=== PATIENT | male | born 1980 | race Two or more races ===

== ENCOUNTER 2020-02-27 11:53 | Inpatient (IN) | payer MEDICAID, OTHER ==
[~2020-02-27] VITALS: Ht 160 cm; Wt 94.0 kg
[2020-02-27 12:51] LABS: Basophils # (auto) 0 10 ^3/uL (0-0.2); Basophils % (auto) 0.5 % (0.0-2.0); Eosinophils # (auto) 0.3 10 ^3/uL (0-0.8); Eosinophils % (auto) 3.6 % (0.0-7.0); Hematocrit 46.2 % (41.0-53.0); Hemoglobin 16.1 g/dL (13.5-17.5); Lymphocytes # (auto) 2.4 10 ^3/uL (0.4-5.4); Lymphocytes % (auto) 30.9 % (10.0-50.0); Mean Corpuscular Hemoglobin 29.5 pg (28.0-32.0); Mean Corpuscular Hgb Conc. 34.8 g/dL (32.0-36.0); Mean Corpuscular Volume 84.7 fL (80.0-100.0); Monocytes # (auto) 0.5 10 ^3/uL (0-1.3); Monocytes % (auto) 6.3 % (0.0-12.0); Neutrophils # (auto) 4.5 10 ^3/uL (1.6-8.6); Neutrophils % (auto) 58.7 % (37.0-80.0); Nucleated Red Blood Cells % 0.3 %; Platelet Count (auto) 265 10^3/uL (140-450); Red Blood Cells 5.46 10^6/uL (4.5-5.90); White Blood Cell 7.7 10^3/uL (4.4-10.8)
[2020-02-27 13:02] LABS: Albumin 3.9 g/dL (3.4-5.0); Potassium 4.1 mmol/L (3.5-5.1)
[2020-02-27 13:06] LABS: Bilirubin, Total 0.2 mg/dL (0.2-1.0); Total Protein 8.5 g/dL (6.4-8.2)
[2020-02-27 13:10] LABS: INR 0.97 (0.9-1.15); Partial Thromboplastin Time 28.6 sec (23.0-31.2)
[2020-02-27] MEDS ORDERED: cloNIDine HCL 0.1 MG TAB PO ONE (14:00)
[2020-02-27] MEDS ORDERED: hydrALAZINE HCL 20 MG/ML VL IV ONE (17:30)
[2020-02-27] MEDS ORDERED: ASPirin 81 mg TAB PO ONE (19:30)
[2020-02-27] MEDS ORDERED: MORPHINE SULF INJ 2 MG/ML SYRINGE 1ML IV PRN (19:30)
[2020-02-27] MEDS ORDERED: NITROGLYCERIN 0.4 MG SL TAB SL PRN (19:30)
[2020-02-27] MEDS ORDERED: ATORVASTATIN 20 MG TAB PO ONE (19:30)
[2020-02-27] MEDS ORDERED: ENOXAPARIN SOD 40 MG/0.4 ML SYRINGE SC ONE (21:00)
[2020-02-27] MEDS ORDERED: NIFEdipine 10 MG CAP PO ONE (21:00)
[2020-02-27] MEDS ORDERED: NIFEdipine ER 30 MG TAB PO ONE (22:45)
[2020-02-28] MEDS ORDERED: LORazepam 0.5 MG TAB PO PRN
[2020-02-28] MEDS ORDERED: INFLUENZA QUAD 2020-2021 0.5 ML SYRG IM ONE
[2020-02-28] MEDS ORDERED: HYDROcodone-ACET 5/325MG TAB PO PRN
[2020-02-28] MEDS ORDERED: ALUM & MAG HYDROX-SIMETH LIQ(MAALOX) 30 ML PO PRN
[2020-02-28] MEDS ORDERED: ONDANSETRON HCL 4 MG/2 ML VIAL IV PRN
[2020-02-28] MEDS ORDERED: NITROGLYCERIN 0.4 MG SL TAB SL PRN
[2020-02-28] MEDS ORDERED: MORPHINE SULF INJ 2 MG/ML SYRINGE 1ML IV PRN ×2
[2020-02-28] MEDS ORDERED: PNEUMOCOCCAL VACC POLYS 25 MCG/0.5 ML VIAL IM ONE
[2020-02-28] MEDS ORDERED: DOCUSATE SOD 100 MG CAP PO PRN
[2020-02-28] MEDS: SODIUM CHLOR 0.9% PF (SALINE LOCK) 10ML VIAL/SYR IV SCH ×3 (06:00→23:31)
[2020-02-28 08:54] LABS: Cholesterol 215 mg/dL (< 200); Triglycerides 419 mg/dL (< 150)
[2020-02-28 08:56] LABS: HDL Cholesterol 35 mg/dL (40-59)
[2020-02-28] MEDS ORDERED: LORazepam 2MG/ML-1ML VIAL IV PRN (11:00)
[2020-02-28] MEDS: CLOPIDOGREL BISULFATE 75 MG TAB PO SCH (11:17)
[2020-02-28] MEDS: NIFEdipine ER 30 MG TAB PO SCH (11:17)
[2020-02-28] MEDS: ENOXAPARIN SOD 40 MG/0.4 ML SYRINGE SC SCH (11:18)
[2020-02-28 21:28] VITALS: BP 159/122
[2020-02-28 22:00] VITALS: BP 159/122
[2020-02-28] MEDS: ATORVASTATIN 20 MG TAB PO SCH (23:31)
[2020-02-28] MEDS: hydrALAZINE HCL 20 MG/ML VL IV PRN (23:32)
[2020-02-29] MEDS ORDERED: INFLUENZA QUAD 2020-2021 0.5 ML SYRG IM ONE (03:15)
[2020-02-29] MEDS ORDERED: PNEUMOCOCCAL VACC POLYS 25 MCG/0.5 ML VIAL IM ONE (03:15)
[2020-02-29 03:22] LABS: Urine Amorphous Crystal FEW /hpf (None Seen); Urine Bacteria FEW /hpf (None Seen); Urine Blood Negative /uL (Negative); Urine Hyaline Cast FEW /lpf (0 - 2); Urine Mucus FEW (None Seen); Urine Specific Gravity 1.023 (1.001-1.035); Urine WBC 1 /hpf (0 - 3)
[2020-02-29 03:37] LABS: Alcohol, Urine < 3.0 mg/dL (0-10); Amphetamine Screen, Urine NEGATIVE (NEGATIVE); Barbiturate Scree,Urine NEGATIVE (NEGATIVE); Benzodiazephine Screen, Urine NEGATIVE (NEGATIVE); Cannabinoid Screen, Urine NEGATIVE (NEGATIVE); Cocaine Screen, Urine NEGATIVE (NEGATIVE); Opiate Scree,Urine NEGATIVE (NEGATIVE); Phencyclidine Screen, Urine NEGATIVE (NEGATIVE)
[2020-02-29 05:00] VITALS: BP 126/81
[2020-02-29] MEDS: SODIUM CHLOR 0.9% PF (SALINE LOCK) 10ML VIAL/SYR IV SCH ×3 (06:16→22:00)
[2020-02-29 08:44] VITALS: BP 141/77
[2020-02-29] MEDS: ASPirin-EC 81 mg tab PO SCH (09:23)
[2020-02-29] MEDS: CLOPIDOGREL BISULFATE 75 MG TAB PO SCH (09:23)
[2020-02-29] MEDS: NIFEdipine ER 30 MG TAB PO SCH (09:23)
[2020-02-29] MEDS: ENOXAPARIN SOD 40 MG/0.4 ML SYRINGE SC SCH (09:24)
[2020-02-29] MEDS: hydrALAZINE HCL 20 MG/ML VL IV PRN (12:22)
[2020-02-29 12:35] VITALS: BP 154/83
[2020-02-29 17:23] VITALS: BP 127/82
[2020-02-29 21:22] VITALS: BP 121/75
[2020-02-29] MEDS: ATORVASTATIN 20 MG TAB PO SCH (21:28)
[2020-03-01 05:55] VITALS: BP 128/84
[2020-03-01] MEDS: SODIUM CHLOR 0.9% PF (SALINE LOCK) 10ML VIAL/SYR IV SCH (06:00)
[2020-03-01 08:56] VITALS: BP 129/87
[2020-03-01] MEDS: CLOPIDOGREL BISULFATE 75 MG TAB PO SCH (09:33)
[2020-03-01] MEDS: ENOXAPARIN SOD 40 MG/0.4 ML SYRINGE SC SCH (09:34)
[2020-03-01] MEDS: ASPirin-EC 81 mg tab PO SCH (09:34)
[2020-03-01] MEDS: NIFEdipine ER 30 MG TAB PO SCH (09:34)
[2020-03-01 12:18] VITALS: BP 130/65
[2020-03-01 13:08] VITALS: BP 138/77
== END 2020-03-01 14:33 | disposition home or self-care (01) | DRG 45 ==
LOC: ER 11:53 → OVERFLOW 11:54 → TELE-CENTR 02-28 21:28
PROVIDERS: ADMIT Hospitalist; ATTEND Internal Medicine
DX: I63.511 Cerebral infarction due to unspecified occlusion or stenosis of right middle cerebral artery (principal); G81.94 Hemiplegia, unspecified affecting left nondominant side; R47.81 Slurred speech; R47.1 Dysarthria and anarthria; G47.10 Hypersomnia, unspecified; Z20.828 Contact with and (suspected) exposure to other viral communicable diseases; I10 Essential (primary) hypertension; R51.9 Headache, unspecified; E78.5 Hyperlipidemia, unspecified; I16.1 Hypertensive emergency; Z79.02 Long term (current) use of antithrombotics/antiplatelets; Z79.82 Long term (current) use of aspirin; Z79.899 Other long term (current) drug therapy; Z82.49 Family history of ischemic heart disease and other diseases of the circulatory system; Z83.3 Family history of diabetes mellitus; Z91.14 Patient's other noncompliance with medication regimen; Z68.36 Body mass index [BMI] 36.0-36.9, adult; Z23 Encounter for immunization; E66.9 Obesity, unspecified
CPT/HCPCS: 36415; 70450; 70545; 70551; 80053; 80061; 80307; 81001; 81241; 83036; 83880; 85025; 85301; 85302; 85303; 85305; 85306; 85610; 85613; 85670; 85705; 85730; 85732; 86147; 87040; 87426; 93005; 93886; 96372; 96374; 97110; 97116; 97530; G0378

== ENCOUNTER 2020-12-04 04:49 | Emergency (ER) | payer MEDICAID, OTHER ==
[~2020-12-04] VITALS: Ht 167.6 cm; Wt 97.5 kg
[2020-12-04] MEDS ORDERED: LORazepam 2MG/ML-1ML VIAL ONE (05:10)
[2020-12-04] MEDS ORDERED: SODIUM CHLORIDE 0.9% 1,000 ML IV ONE ×2 (05:15→08:15)
[2020-12-04] MEDS ORDERED: LORazepam 2MG/ML-1ML VIAL IV ONE ×2 (05:15→08:15)
[2020-12-04 05:42] LABS: Albumin 4.5 g/dL (3.4-5.0); Anion Gap 12 (5-15); Blood Alcohol < 3.0 mg/dL (0-5); Blood Urea Nitrogen 16 mg/dL (7-18); Calcium 8.8 mg/dL (8.5-10.1); Carbon Dioxide 23 mmol/L (21-32); Chloride 103 mmol/L (98-107); Glucose 123 mg/dL (74-106); Magnesium 2.5 mg/dL (1.6-2.6); Sodium 138 mmol/L (136-145)
[2020-12-04] MEDS ORDERED: ONDANSETRON HCL 4 MG/2 ML VIAL IV ONE (05:45)
[2020-12-04 05:49] LABS: Alanine Aminotransferase 44 U/L (16-61); Alkaline Phosphatase 96 U/L (45-117); Aspartate Aminotransferase 89 U/L (15-37); BUN/Creatinine Ratio 11.9; Bilirubin, Total 0.4 mg/dL (0.2-1.0); GFR African American 76 mL/min; GFR Non-African American 63 mL/min; Total Protein 8.8 g/dL (6.4-8.2)
[2020-12-04 05:55] LABS: Basophils # (auto) 0.1 10 ^3/uL (0-0.2); Basophils % (auto) 0.4 % (0.0-2.0); Eosinophils # (auto) 0 10 ^3/uL (0-0.8); Eosinophils % (auto) 0.2 % (0.0-7.0); Hematocrit 45.4 % (41.0-53.0); Hemoglobin 15.1 g/dL (13.5-17.5); Lymphocytes # (auto) 1.3 10 ^3/uL (0.4-5.4); Lymphocytes % (auto) 7.6 % (10.0-50.0); Mean Corpuscular Hemoglobin 28.3 pg (28.0-32.0); Mean Corpuscular Hgb Conc. 33.2 g/dL (32.0-36.0); Mean Corpuscular Volume 85.1 fL (80.0-100.0); Monocytes % (auto) 5.7 % (0.0-12.0); Neutrophils # (auto) 14.4 10 ^3/uL (1.6-8.6); Neutrophils % (auto) 86.1 % (37.0-80.0); Red Blood Cells 5.33 10^6/uL (4.5-5.90); Red Cell Distribution Width 14.4 % (11.8-14.3); White Blood Cell 16.7 10^3/uL (4.4-10.8)
[2020-12-04 06:22] LABS: Potassium 4.1 mmol/L (3.5-5.1)
[2020-12-04 09:00] VITALS: BP 191/117
== END 2020-12-04 10:27 | disposition left against medical advice (07) ==
LOC: ER 04:49
DX: F15.10 Other stimulant abuse, uncomplicated (principal); F41.8 Other specified anxiety disorders; I10 Essential (primary) hypertension; I25.2 Old myocardial infarction; E78.5 Hyperlipidemia, unspecified; Z86.73 Personal history of transient ischemic attack (TIA), and cerebral infarction without residual deficits
CPT/HCPCS: 36415; 80053; 80320; 83735; 84484; 85025; 93005; 96361; 96374; 96375; 99284; J2060; J2405; J7030

== ENCOUNTER 2021-03-05 13:19 | Emergency (ER) | payer MEDICAID, OTHER ==
[~2021-03-05] VITALS: Ht 160 cm; Wt 72.6 kg
[2021-03-05] MEDS ORDERED: cloNIDine HCL 0.1 MG TAB PO ONE (13:45)
[2021-03-05] MEDS ORDERED: ACETAMINOPHEN 500 MG TAB PO ONE (22:00)
[2021-03-05] MEDS ORDERED: hydrALAZINE HCL 20 MG/ML VL IV ONE (23:45)
[2021-03-06 00:08] LABS: Albumin 4.3 g/dL (3.4-5.0); Potassium 4.1 mmol/L (3.5-5.1)
[2021-03-06 00:14] LABS: BUN/Creatinine Ratio 20.3; Bilirubin, Total 0.5 mg/dL (0.2-1.0); Total Protein 8.7 g/dL (6.4-8.2)
[2021-03-06 00:29] LABS: Basophils # (auto) 0 10 ^3/uL (0-0.2); Basophils % (auto) 0.3 % (0.0-2.0); Eosinophils # (auto) 0.1 10 ^3/uL (0-0.8); Eosinophils % (auto) 0.4 % (0.0-7.0); Hematocrit 46.1 % (41.0-53.0); Hemoglobin 15.4 g/dL (13.5-17.5); Lymphocytes # (auto) 1.9 10 ^3/uL (0.4-5.4); Lymphocytes % (auto) 14.5 % (10.0-50.0); Mean Corpuscular Hemoglobin 28.1 pg (28.0-32.0); Mean Corpuscular Hgb Conc. 33.3 g/dL (32.0-36.0); Mean Corpuscular Volume 84.2 fL (80.0-100.0); Monocytes # (auto) 0.7 10 ^3/uL (0-1.3); Monocytes % (auto) 5.6 % (0.0-12.0); Neutrophils # (auto) 10.3 10 ^3/uL (1.6-8.6); Neutrophils % (auto) 79.2 % (37.0-80.0); Nucleated Red Blood Cells % 0.2 %; Red Blood Cells 5.48 10^6/uL (4.5-5.90); Red Cell Distribution Width 14.7 % (11.8-14.3)
[2021-03-06 01:37] VITALS: BP 151/104
== END 2021-03-06 01:41 | disposition home or self-care (01) ==
LOC: ER 13:19
DX: R07.89 Other chest pain (principal); E78.5 Hyperlipidemia, unspecified; I10 Essential (primary) hypertension; R51.9 Headache, unspecified; Z86.73 Personal history of transient ischemic attack (TIA), and cerebral infarction without residual deficits
CPT/HCPCS: 36415; 70450; 71045; 80053; 84484; 85025; 93005

== ENCOUNTER 2021-08-22 10:51 | Emergency (ER) | payer MEDICAID, OTHER ==
[~2021-08-22] VITALS: Ht 160 cm; Wt 104.3 kg
[2021-08-22 11:59] VITALS: BP 146/94
[2021-08-22 14:16] LABS: Basophils # (auto) 0 10 ^3/uL (0-0.2); Basophils % (auto) 0.3 % (0.0-2.0); Eosinophils # (auto) 0.2 10 ^3/uL (0-0.8); Eosinophils % (auto) 1.7 % (0.0-7.0); Hematocrit 47.5 % (41.0-53.0); Hemoglobin 16.1 g/dL (13.5-17.5); Lymphocytes # (auto) 2.7 10 ^3/uL (0.4-5.4); Lymphocytes % (auto) 25.3 % (10.0-50.0); Mean Corpuscular Hemoglobin 27.9 pg (28.0-32.0); Mean Corpuscular Hgb Conc. 33.9 g/dL (32.0-36.0); Mean Corpuscular Volume 82.3 fL (80.0-100.0); Monocytes # (auto) 0.7 10 ^3/uL (0-1.3); Monocytes % (auto) 6.2 % (0.0-12.0); Neutrophils # (auto) 7.2 10 ^3/uL (1.6-8.6); Neutrophils % (auto) 66.5 % (37.0-80.0); Nucleated Red Blood Cells % 0.1 %; Red Blood Cells 5.77 10^6/uL (4.5-5.90); Red Cell Distribution Width 14.7 % (11.8-14.3); White Blood Cell 10.8 10^3/uL (4.4-10.8)
[2021-08-22 14:26] LABS: Albumin 3.9 g/dL (3.4-5.0); Calcium 9.4 mg/dL (8.5-10.1); Potassium 4.2 mmol/L (3.5-5.1)
[2021-08-22 14:28] LABS: BUN/Creatinine Ratio 12.5
[2021-08-22 14:31] LABS: Bilirubin, Total 0.3 mg/dL (0.2-1.0); Total Protein 8.3 g/dL (6.4-8.2)
[2021-08-22] MEDS ORDERED: ONDA-144 PO (14:41)
[2021-08-22] MEDS ORDERED: PANT40TA2 PO (14:44)
== END 2021-08-22 15:59 | disposition left against medical advice (07) ==
LOC: ER 10:51
DX: R10.84 Generalized abdominal pain (principal); E78.5 Hyperlipidemia, unspecified; I10 Essential (primary) hypertension; F15.10 Other stimulant abuse, uncomplicated; Z86.73 Personal history of transient ischemic attack (TIA), and cerebral infarction without residual deficits
CPT/HCPCS: 36415; 76705; 80053; 82150; 83690; 85025

== ENCOUNTER 2025-02-10 02:51 | Inpatient (IN) | payer BC, MEDICAID ==
[~2025-02-10] VITALS: Ht 162.6 cm; Wt 104.5 kg
[2025-02-10] VITALS (23 sets, daily range): BP systolic 107–153; BP diastolic 50–93; PULSE 71–99; RESP 16–33; TEMP 98.5; O2SAT 79–97
[~2025-02-10 02:51] MED LIST: ONDA-144 PO; PANT40TA2 PO
--- NOTE | 2025-02-10 03:35 | ED.PDOC ---
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 According to the patient, yesterday on 02/09/2025 he woke up in the morning and was seeing white dots in his left eye, symptoms continued to persist and worsen which is what prompted this visit to the ER. Denies having similar symptoms in the past. On review of systems patient is complaining of urinary frequency. Patient was noted to have blood pressure 205/142 with a heart rate of 98. Chief Complaint: High Blood Pressure Time Seen by MD: 03:10 Allergies: Coded Allergies: NO KNOWN ALLERGIES (Unverified , 02/27/20) Home Meds Active Scripts Pantoprazole Sodium Sesquihydr (Protonix) 40 Mg Tab, 40 MG PO DAILY, #30 TAB Prov:PETE BOYER MD 08/22/21 Ondansetron (Zofran) 4 Mg Tab, 1 TAB PO Q6HR, #20 TAB Prov:PETE BOYER MD 08/22/21 Information Source: Patient, Spouse Mode of Arrival: Wheelchair Timing: Hours Duration: Since onset Medication Refill: Lost Prescription (Lost medical insurance), For: Hyperte nsion Past Medical History PAST MEDICAL HISTORY: CVA, High Lipids, HTN, PA Past Medical History (Contd): hypertension, dyslipidemia, TIA, CVA, 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 Surgical History: Denies all surgeries Family History Family History: Reviewed,noncontributory to illness Social History Smoker: Cigarettes (1 pack per day for the past 2 years) Alcohol: Denies ETOH Use, Other (6-10 drinks of beer per week, last drink on Sunday when he had 10 drinks) Drugs: Methamphetamine Lives In: Home Constitutional: denies: chills, diaphoresis, fatigue, fever, malaise, sweats, weakness, others EENTM: denies: blurred vision, double vision, ear bleeding, ear discharge, ear drainage, ear pain, ear ringing, eye pain, eye redness, hearing loss, mouth pain, mouth swelling, nasal discharge, nose bleeding, nose congestion, nose pain, photophobia, tearing, throat pain, throat swelling, voice changes, others Respiratory: reports: shortness of breath (For the last 3 years); denies: cough, hemoptysis, orthopnea, SOB at rest, SOB with excertion, stridor, wheezing, others Cardiovascular: denies: chest pain, dizzy spells, diaphoresis, Dyspnea on exertion, edema, irregular heart beat, left arm pain, lightheadedness, palpitations, PND, syncope, others Gastrointestinal: denies: abdomen distended, abdominal pain, blood streaked bowels, constipated, diarrhea, dysphagia, difficulty swallowing, hematemesis, melena, nausea, poor appetite, poor fluid intake, rectal bleeding, rectal pain, vomiting, others Genitourinary: reports: frequency; denies: burning, dysuria, flank pain, hematuria, incontinence, penile discharge, penile sore, pain, testicle pain, testicle swelling, urgency, others Neurological: denies: dizziness, fainting, headache, left sided numbness, left sided weakness, numbness, paresthesia, pre-existing deficit, right sided numbness, right sided weakness, seizure, speech problems, tingling, tremors, weakness, others Musculoskeletal: denies: back pain, gout, joint pain, joint swelling, muscle pain, muscle stiffness, neck pain, others Integumetry: denies: bruises, change in color, change in hair/nails, dryness, laceration, lesions, lumps, rash, wounds, others Allergic/Immunocompromised: denies: Difficulty Healing, Frequent Infections, Hives, Itching, others Hematologic/Lymphatic: denies: anemia, blood clots, easy bleeding, easy bruising, swollen glands, others Endocrine: denies: excessive hunger, excessive sweating, excessive thirst, excessive urination, flushing, intolerance to cold, intolerance to heat, unexpl ained weight gain, unexplained weight loss, others Psychiatric: denies: anxiety, bipolar disorder, depression, hopeless, panic disorder, schizophrenia, sleepless, suicidal, others Physical Exam General Appearance: Mild Distress HEENT: Other (Right pupil sluggishly reactive, decreased vision. Left pupil b risk reactive) Neck: Non-Tender, Normal, Normal Inspection Respiratory: No Accessory Muscle Use, Normal Breath Sounds Cardiovascular: Regular Rate/Rhythm Breast Exam: Deferred Gastrointestinal: Non Tender, No Pulsatile Mass, Normal Bowel Sounds Genitalia: Deferred Pelvic: Deferred Rectal: Rectal Exam not done Extremities: No calf tenderness, Non-tender, No pedal edema Neurologic: Alert, No Motor Deficits, No Sensory Deficits Cerebellar Function: Normal Reflexes: NOT DONE Skin: Dry, Normal Color Peripheral Pulses: 2+ dorsalis pedis (R), 2+ dorsalis pedis (L) Lymphatic: NOT DONE Was a procedure done? Was a procedure done?: No Differential Dx Considerations may include: Hypertensive urgency Hypertensive emergency Retinal detachment TIA NSTEMI X-Ray, Labs, Meds, VS Vital Signs Date Time Temp Pulse Resp B/P (MAP) Pulse Ox O2 Delivery O2 Flow Rate FiO2 02/10/25 04:35 80 190/124 02/10/25 04:34 80 190/124 02/10/25 04:29 67 02/10/25 04:15 70 195/126 (149) 02/10/25 03:43 83 199/141 02/10/25 03:22 96 Room Air* 0 21 02/10/25 03:22 97.8 85 17 205/142 (163) 96 97.8 02/10/25 03:17 98.1 98 20 213/154 97 98.1 Lab Test 02/10/25 03:33 Range/Units White Blood Count 10.2 4.4-10.8 10^3/uL Red Blood Count 5.69 4.5-5.90 10^6/uL Hemoglobin 16.0 13.5-17.5 g/dL Hematocrit 47.5 41.0-53.0 % Mean Corpuscular Volume 83.4 80.0-100.0 fL Mean Corpuscular Hemoglobin 28.1 28.0-32.0 pg Mean Corpuscular Hemoglobin Concent 33.7 32.0-36.0 g/dL Red Cell Distribution Width 15.3 H 11.8-14.3 % Platelet Count 154 140-450 10^3/uL Mean Platelet Volume 9.0 6.9-10.8 fL Neutrophils (%) (Auto) 64.8 37.0-80.0 % Lymphocytes (%) (Auto) 26.5 10.0-50.0 % Monocytes (%) (Auto) 5.0 0.0-12.0 % Eosinophils (%) (Auto) 3.3 0.0-7.0 % Basophils (%) (Auto) 0.4 0.0-2.0 % Neutrophils # (Auto) 6.6 1.6-8.6 10 ^3/uL Lymphocytes # (Auto) 2.7 0.4-5.4 10 ^3/uL Monocytes # (Auto) 0.5 0-1.3 10 ^3/uL Eosinophils # (Auto) 0.3 0-0.8 10 ^3/uL Basophils # (Auto) 0 0-0.2 10 ^3/uL Nucleated Red Blood Cells 0.2 % Sodium Level 139 136-145 mmol/L Potassium Level 3.6 3.5-5.1 mmol/L Chloride Level 104 98-107 mmol/L Carbon Dioxide Level 24 20-31 mmol/L Anion Gap 11 5-15 Blood Urea Nitrogen 21 9-23 mg/dL Creatinine 1.22 0.700-1.30 mg/dL Glomerular Filtration Rate Calc 75 >90 mL/min BUN/Creatinine Ratio 17.2 10.0-20.0 Serum Glucose 104 74-106 mg/dL Calcium Level 9.4 8.7-10.4 mg/dL Troponin I High Sensitivity 508 *H </=54 ng/L Current Medications Medications (Trade) Dose Ordered Sig/Hilton Route Start Time Stop Time Status Last Admin Labetalol HCl (Labetalol HCl) 10 mg ONCE ONCE IV 02/10/25 03:30 02/10/25 03:31 DC 02/10/25 03:43 Labetalol HCl (Labetalol HCl) 10 mg ONCE ONCE IV 02/10/25 04:15 02/10/25 04:21 DC 02/10/25 04:34 Time of 1ST Reevaluation: 03:50 Reevaluation 1ST: Unchanged Time of 2ND Reevaluation: 04:12 Reevaluation 2ND: Worsened Time of 3RD Reevaluation: 04:34 Reevaluation 3RD: Unchanged Patient Education/Counseling: Diagnosis, Treatment, Prognosis, Need For Follow Up Family Education/Counseling: Diagnosis, Treatment, Prognosis, Need For Follow Up SEPSIS Sepsis Screen Date sepsis recognized/suspect: Feb 10, 2025 Time Sepsis recognized/suspect: 254 Recent Procedure: No On Antibiotic Therapy: No Respiratory Rate >20: No Heart Rate >90: Yes Temp<36 C (96.8 F) or >38.3 C: No SBP <90 or MAP <65 mmHG: No New Acute Mental Status Change: No Is the patient on CPAP, BIPAP,: No Physician Orders Troponin-I Hs (02/10/25 04:24) Troponin-I Hs (02/10/25 06:24) Urinalysis (02/10/25 03:24) Head Without Contrast (02/10/25 03:35) Chest Portable (02/10/25 03:44) Vital Signs Date Time Temp Pulse Resp B/P (MAP) Pulse Ox O2 Delivery O2 Flow Rate FiO2 02/10/25 04:35 80 190/124 02/10/25 04:34 80 190/124 02/10/25 04:29 67 02/10/25 04:15 70 195/126 (149) 02/10/25 03:43 83 199/141 02/10/25 03:22 96 Room Air* 0 21 02/10/25 03:22 97.8 85 17 205/142 (163) 96 97.8 02/10/25 03:17 98.1 98 20 213/154 97 98.1 Laboratory Tests Test 02/10/25 03:33 White Blood Count 10.2 10^3/uL (4.4-10.8) Medications Medications Dose Ordered Sig/Hilton Route Start Time Stop Time Status Last Admin Dose Admin Labetalol HCl 10 mg ONCE ONCE IV 02/10/25 03:30 02/10/25 03:31 DC 02/10/25 03:43 Labetalol HCl 10 mg ONCE ONCE IV 02/10/25 04:15 02/10/25 04:21 DC 02/10/25 04:34 Departure 1 Departure Time of Disposition: 04:45 Impression: Primary Impression: Hypertensive emergency Additional Impressions: NSTEMI (non-ST elevated myocardial infarction) Hypertensive urgency TIA (transient ischemic attack) Disposition: 09 ADMITTED INPATIENT Admit to: Tele Condition: Guarded Comments Despite 2 doses of IV labetalol 10 mg, patient's blood pressure decreased only somewhat. Patient was also noted to have elevated troponins, however, EKG did not show contiguous changes. Patient was put up for admission for further evaluation and management. Critical Care Note Critical Care Time?: No Stability Stability form required: No Heart Score Heart Score: Heart Score Response (Comments) Value History Slightly Suspicious 0 EKG Normal 0 Age <45 0 Risk Factors >3 or Hx ASHD 2 Troponin >3 x's Normal limit 2 Total 4 JACOB ADDISON RESIDENT Feb 10, 2025 03:34
[2025-02-10] MEDS: LABETALOL HCL 20 MG/4 ML VL IV ONE ×2 (03:43→04:34)
[2025-02-10 03:45] LABS: Hematocrit 47.5 % (41.0-53.0); Hemoglobin 16.0 g/dL (13.5-17.5); Mean Corpuscular Hemoglobin 28.1 pg (28.0-32.0); Mean Corpuscular Volume 83.4 fL (80.0-100.0); Nucleated Red Blood Cells % 0.2 %
[2025-02-10 04:07] LABS: Chloride 104 mmol/L (98-107); Potassium 3.6 mmol/L (3.5-5.1); Sodium 139 mmol/L (136-145)
[2025-02-10 04:08] LABS: Anion Gap 11 (5-15); Calcium 9.4 mg/dL (8.7-10.4); Carbon Dioxide 24 mmol/L (20-31)
[2025-02-10 04:13] LABS: BUN/Creatinine Ratio 17.2 (10.0-20.0); Blood Urea Nitrogen 21 mg/dL (9-23); Glucose 104 mg/dL (74-106)
--- NOTE | 2025-02-10 04:31 | ECG ---
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
[2025-02-10] MEDS ORDERED: NITROGLYCERIN 0.4 MG SL TAB SL PRN (05:30)
[2025-02-10] MEDS ORDERED: MORPHINE SULFATE INJ 2 MG/ml SYRG IV PRN (05:30)
--- NOTE | 2025-02-10 05:33 | DVHHPRES ---
History of Present Illness Resident Creating Document: ORAL HAY History of Present Illness Mr Kenji Dupont, a 44 year-old male with past medical history of hypertension, hypercholesterolemia, TIA 3 years ago, right eye blindness since childhood presented to the ER with the complaints of visual symptoms in both eyes, he woke up to a bright leyla morning on Sunday but reports seeing white dots in both visual bryant. He denies any weakness, dizziness, ataxia or any other neurologic symptoms. On admission the patient's blood pressure was 205/142, heart rate was 98, troponin is in 500s. EKG showed noncontiguous leads ST- elevation, did not meet the criteria for ST-elevation for a male. We will continue monitoring EKG and troponin. Patient takes multiple home medications however he could not mention any name. He also reports having shortness of breaths since last 2 years, improves on sitting up and worsens on lying down. On examination no JVD, no hepatojugular reflux was noted. He has trace bilateral pedal edema. He also have episodes of paroxysmal nocturnal dyspnea. Echocardiography has been ordered. The patient reports he has been noncompliant with medications, due to insurance issues. Past medical history: As above Past surgical history: Allergies: None Home medications: Patient could not recall name, he takes antihypertensive and lipid-lowering agents, will bring those medications. In the system pantoprazole, ondansetron available. Smoking: Never Alcohol: On the weekends, 10 glasses. Drugs: None Code status: Full code Review of Systems Allergies: Coded Allergies: NO KNOWN ALLERGIES (Unverified , 02/27/20) Exam Vital Signs Vital Signs Date Time Temp Pulse Resp B/P (MAP) Pulse Ox O2 Delivery O2 Flow Rate FiO2 02/10/25 05:31 67 173/117 02/10/25 05:00 13 97 02/10/25 03:22 Room Air* 0 21 02/10/25 03:22 97.8 97.8 Exam Pt is lying on bed General Appearance: Alert, Oriented X3, Cooperative, Mild distress HEENT: Atraumatic, Mucous membranes moist/pink Respiratory: Clear to auscultation, Normal air movement, No added sounds Cardiovascular: Regular rate, Normal S1, Normal S2, No murmurs Abdominal/ : Active bowel sounds, Soft, no distention, no tenderness Extremities: Bilateral trace edema, Normal pulses, No tenderness/swelling Skin: No Significant rash, except past surgical scars Neuro: Normal speech, sensorimotor deficits none Psych/Mental Status: Mental status NL, Mood NL Nurse 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 examination Labs/Xrays Labs Test 02/10/25 04:53 02/10/25 03:33 Range/Units White Blood Count 10.2 4.4-10.8 10^3/uL Red Blood Count 5.69 4.5-5.90 10^6/uL Hemoglobin 16.0 13.5-17.5 g/dL Hematocrit 47.5 41.0-53.0 % Mean Corpuscular Volume 83.4 80.0-100.0 fL Mean Corpuscular Hemoglobin 28.1 28.0-32.0 pg Mean Corpuscular Hemoglobin Concent 33.7 32.0-36.0 g/dL Red Cell Distribution Width 15.3 H 11.8-14.3 % Platelet Count 154 140-450 10^3/uL Mean Platelet Volume 9.0 6.9-10.8 fL Neutrophils (%) (Auto) 64.8 37.0-80.0 % Lymphocytes (%) (Auto) 26.5 10.0-50.0 % Monocytes (%) (Auto) 5.0 0.0-12.0 % Eosinophils (%) (Auto) 3.3 0.0-7.0 % Basophils (%) (Auto) 0.4 0.0-2.0 % Neutrophils # (Auto) 6.6 1.6-8.6 10 ^3/uL Lymphocytes # (Auto) 2.7 0.4-5.4 10 ^3/uL Monocytes # (Auto) 0.5 0-1.3 10 ^3/uL Eosinophils # (Auto) 0.3 0-0.8 10 ^3/uL Basophils # (Auto) 0 0-0.2 10 ^3/uL Nucleated Red Blood Cells 0.2 % Sodium Level 139 136-145 mmol/L Potassium Level 3.6 3.5-5.1 mmol/L Chloride Level 104 98-107 mmol/L Carbon Dioxide Level 24 20-31 mmol/L Anion Gap 11 5-15 Blood Urea Nitrogen 21 9-23 mg/dL Creatinine 1.22 0.700-1.30 mg/dL Glomerular Filtration Rate Calc 75 >90 mL/min BUN/Creatinine Ratio 17.2 10.0-20.0 Serum Glucose 104 74-106 mg/dL Calcium Level 9.4 8.7-10.4 mg/dL SEPSIS Sepsis Screen Date sepsis recognized/suspect: Feb 10, 2025 Time Sepsis recognized/suspect: 254 Recent Procedure: No On Antibiotic Therapy: No Respiratory Rate >20: No Heart Rate >90: Yes Temp<36 C (96.8 F) or >38.3 C: No SBP <90 or MAP <65 mmHG: No New Acute Mental Status Change: No Is the patient on CPAP, BIPAP,: No Physician Orders Troponin-I Hs (02/10/25 04:24) Troponin-I Hs (02/10/25 06:24) Urinalysis (02/10/25 03:24) Head Without Contrast (02/10/25 03:35) Chest Portable (02/10/25 03:44) Admit (02/10/25 05:29) Allergies (02/10/25 05:29) Code Status (02/10/25 05:29) Enoxaparin Sodium (Lovenox) (02/10/25 10:00) Complete Blood Count (02/11/25 04:00) Comprehensive Metabolic Panel (02/11/25 04:00) Npo (Nothing By Mouth) Diet (02/10/25 Breakfast) Echo 2d Mode Cardiac Dop (02/10/25 05:29) Nitroglycerin Sublingual (Ntrostat Subli (02/10/25 05:30) Morphine Sulfate Injection (02/10/25 05:30) Oxygen By Nasal Cannula (02/10/25 05:29) Stat Ekg For Chest Pain (02/10/25 05:29) Notify Md Of Changes From Base (02/10/25 05:29) Snow Blower For 24 Hours (02/10/25 05:29) Emergency Dysrhythmia Protocol (02/10/25 05:29) Rhythm Strips Once Every Shift (02/10/25 05:29) Vital Signs Date Time Temp Pulse Resp B/P (MAP) Pulse Ox O2 Delivery O2 Flow Rate FiO2 02/10/25 05:31 67 173/117 02/10/25 05:00 73 13 180/125 (143) 97 02/10/25 04:35 80 190/124 02/10/25 04:34 80 190/124 02/10/25 04:29 67 02/10/25 04:15 70 195/126 (149) 02/10/25 03:43 83 199/141 02/10/25 03:22 96 Room Air* 0 21 02/10/25 03:22 97.8 85 17 205/142 (163) 96 97.8 02/10/25 03:17 98.1 98 20 213/154 97 98.1 Laboratory Tests Test 02/10/25 03:33 White Blood Count 10.2 10^3/uL (4.4-10.8) Medications Medications Dose Ordered Sig/Hilton Route Start Time Stop Time Status Last Admin Dose Admin Labetalol HCl 10 mg ONCE ONCE IV 02/10/25 03:30 02/10/25 03:31 DC 02/10/25 03:43 10 MG Labetalol HCl 10 mg ONCE ONCE IV 02/10/25 04:15 02/10/25 04:21 DC 02/10/25 04:34 10 MG Assessment/Plan Assessment/Plan Hypertensive emergency NSTEMI type 1 versus type 2 EKG: No acute ischemic changes, continue monitoring EKG Troponin in 500s Atorvastatin Losartan Nifedipine Echocardiography and BNP ordered, pending results History of dyslipidemia History of TIA Head CT ordered, pending results Atorvastatin GI prophylaxis: Pantoprazole DVT prophylaxis: Lovenox Diet: Cardiac Goals of care discussed with the patient for more than 27 minutes: Full code status Case discussed with Dr. Garrett , patient and RN Plan discussed with: Patient, Other (RN) My Orders Orders - ORAL HAY RESIDENT Procedure Category Date Status Time Admit ADMIT 02/10/25 Transmitted 05:29 Allergies JUAN JOSE 02/10/25 Transmitted 05:29 Code Status CODE 02/10/25 Transmitted 05:29 Enoxaparin Sodium PHA 02/10/25 Transmitted (Lovenox) 10:00 Complete Blood Count LAB 02/11/25 Verified 04:00 Comprehensive LAB 02/11/25 Verified Metabolic Panel 04:00 Npo (Nothing By DIET 02/10/25 Transmitted Mouth) Diet Breakfast Echo 2d Mode Cardiac US 02/10/25 Transmitted DOP 05:29 Nitroglycerin PHA 02/10/25 Transmitted Sublingual (Ntrostat 05:30 Morphine Sulfate PHA 02/10/25 Transmitted Injection 05:30 Oxygen By Nasal RT 02/10/25 Transmitted Cannula 05:29 Stat Ekg For Chest [facility] 02/10/25 Verified Pain 05:29 Notify Md Of Changes [facility] 02/10/25 Verified From Base 05:29 Snow Blower For [facility] 02/10/25 Verified 24 Hours 05:29 Emergency Dysrhythmia [facility] 02/10/25 Verified Protocol 05:29 Rhythm Strips Once [facility] 02/10/25 Verified Every Shift 05:29 Date of Service: Feb 10, 2025 Billing Provider: ANNE GARRETT MD Common Visit Codes: 48255-EIUQKDS INP/OBS CARE (HIGH) Secondary Visit Codes: 29919-[id number] CARE PLAN 30 MINUTES ORAL HAY RESIDENT Feb 10, 2025 05:33
[2025-02-10] MEDS: LOSARTAN POTASSIUM 50 MG TAB PO ONE ×2 (06:02→15:09)
[2025-02-10 06:39] LABS: INR 1.11 (0.9-1.15); Partial Thromboplastin Time 29.0 SEC (24.5-34.5); Prothrombin Time 11.6 sec (9.3-11.8)
[2025-02-10 09:32] LABS: Urine Protein, UAD 1+ (Negative)
[2025-02-10 09:53] LABS: Amphetamine Screen, Urine Pos (NEGATIVE); Barbiturate Scree,Urine Neg (NEGATIVE); Benzodiazephine Screen, Urine Neg (NEGATIVE); Cannabinoid Screen, Urine Neg (NEGATIVE); Cocaine Screen, Urine Neg (NEGATIVE); Opiate Scree,Urine Neg (NEGATIVE); Phencyclidine Screen, Urine Neg (NEGATIVE)
[2025-02-10] MEDS: ENOXAPARIN SOD 40 MG/0.4 ML SYRINGE SC SCH (10:00)
[2025-02-10] MEDS ORDERED: LOSARTAN POTASSIUM 50 MG TAB PO SCH (10:00)
--- NOTE | 2025-02-10 10:21 | ECG ---
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
--- NOTE | 2025-02-10 13:06 | DVH ---
EXAM: HEAD WO INDICATION: Hypertensive urgency TECHNIQUE: CT of the head without intravenous contrast. Radiation Dose : 1. Head: CT Dose: CTDI volume is 65.61 mGy. Dose-length product is 1051.41 mGy*cm The dose indicators for CT are the volume Computed Tomography (CT) Dose Index (CTDIvol) and the Dose Length Product (DLP), and are measured in units of mGy and mGy-cm, respectively. These indicators are not patient dose, but values generated from the CT scanner acquisition factors. The report includes radiation exposure data for exposures received during this examination. COMPARISON: None FINDINGS: There is no evidence of acute intracranial hemorrhage, extra-axial collection, mass effect, midline shift, herniation or hydrocephalus. The ventricles, sulci and cisterns are age appropriate. The chamorro-white differentiation is intact. Patchy periventricular and subcortical white matter hypoattenuation is nonspecific but may be related to small vessel ischemic disease. Bilateral maxillary mucosal sinus disease. The remaining visualized paranasal sinuses and mastoid air cells are clear. The surrounding soft tissues and osseous structures are unremarkable. IMPRESSION: 1. No acute intracranial abnormality. Radiation optimization: All CT scans at this facility use at least one of these dose optimization techniques: automated exposure control? mA and/or kV adjustment per patient size (includes targeted exams where dose is matched to clinical indication)? or iterative reconstruction. 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
[2025-02-10 13:50] LABS: Alanine Aminotransferase 35.0 U/L (7-40); Albumin 4.1 g/dL (3.2-4.8); Alkaline Phosphatase 88.0 U/L (46-116); Bilirubin, Direct 0.1 mg/dL (<0.3); Magnesium 2.1 mg/dL (1.6-2.6); Total Protein 7.7 g/dL (5.7-8.2)
[2025-02-10 13:51] LABS: Bilirubin, Total 0.4 mg/dL (0.2-1.0)
--- NOTE | 2025-02-10 14:55 | DVHINCON2 ---
[facility] 02/10/25 1455: Date Seen: Feb 10, 2025 Referring Physician MD Luna Reason for Consultation ?ACS History of Present Illness This is a 44-year-old male who presented to the emergency room with a chief complaint of visual disturbances since Sunday. 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 He was placed on a nicardipine drip for blood pressure control. States he ran out of antihypertensive therapy approximately two years ago. Cardiology consulted in the setting of elevated troponin levels and 12-lead electrocardiogram changes. Denies chest pain, palpitations, SOB, diaphoresis, dizziness, or syncopal events. Significant medical history includes untreated hypertension, untreated dyslipidemia, history of cerebrovascular accident with transient left- sided hemiparesis in 2019, right eye blindness in childhood secondary to a traumatic event, longstanding methamphetamine use, alcohol use, and obesity. Past Medical History Past medical history reviewed. No other significant than mentioned above. Past Surgical History Past surgical history reviewed. No other significant than mentioned above. Family History: Diabetes mellitus G8 MOTHER G8 FATHER Hypertension G8 FATHER Family History Family history reviewed. Social History Admits to longstanding methamphetamine use. Admits to drinking alcohol on the weekends. Denies the use of cigarettes. Allergies: Coded Allergies: NO KNOWN ALLERGIES (Unverified , 02/27/20) Home Meds Active Scripts Pantoprazole Sodium Sesquihydr (Protonix) 40 Mg Tab, 40 MG PO DAILY, #30 TAB Prov:PETE BOYER MD 08/22/21 Ondansetron (Zofran) 4 Mg Tab, 1 TAB PO Q6HR, #20 TAB Prov:PETE BOYER MD 08/22/21 Home Meds Home medications reviewed. Current Medications Current Medications Medications (Trade) Dose Ordered Sig/[place] Route PRN Reason Start Time Stop Time Status Last Admin Enoxaparin Sodium (Lovenox) 40 mg DAILY SC 02/10/25 10:00 02/10/25 10:00 Nitroglycerin (Ntrostat Sublingual) 0.4 mg Q5MINP PRN SL FOR CHEST PAIN 02/10/25 05:30 Morphine Sulfate 2 mg Q30M PRN IV FOR CHEST PAIN 02/10/25 05:30 Atorvastatin Calcium (Lipitor) 40 mg HS PO 02/10/25 22:00 Nifedipine (Procardia Xl (Time-Release)) 60 mg DAILY PO 02/10/25 10:00 UNV Losartan Potassium (Cozaar Tablet) 100 mg DAILY PO 02/10/25 10:00 UNV Nifedipine (Procardia Xl (Time-Release)) 60 mg DAILY PO 02/11/25 10:00 02/10/25 09:09 DC Losartan Potassium (Cozaar Tablet) 100 mg DAILY PO 02/11/25 10:00 Nifedipine (Procardia Xl (Time-Release)) 60 mg DAILY PO 02/10/25 10:00 Nicardipine/ Sodium Chloride 200 ml @ 50 mls/hr Q4H IV 02/10/25 10:15 02/10/25 13:54 Review of Systems Constitutional: No symptom reported Ears, Nose, & Throat: No symptom reported Eyes: No symptom reported Neurological: Left eye visual disturbance Pulmonary/Respiratory: No symptom reported Cardiovascular: No symptom reported Gastrointestinal: No symptom reported Genitourinary: No symptom reported Musculoskeletal: No symptom reported Skin: No symptom reported Psychiatric: No symptom reported Endocrine: No symptom reported Hemotologic/Lymphatic: No symptom reported Vital Signs Vital Signs Date Time Temp Pulse Resp B/P (MAP) Pulse Ox O2 Delivery O2 Flow Rate FiO2 02/10/25 14:15 97 29 127/71 (89) 88 02/10/25 11:45 Room Air* 0 21 02/10/25 11:29 97.6 97.6 Physical Exam General Appearance: Cooperative. Well developed. Well nourished. In no acute distress Head Exam: Normal inspection Neck Exam: Normal inspection. Non-tender. Normal alignment Pulmonary/Respiratory: Chest non-tender. Clear bilateral breath sounds Cardiovascular/Chest: Regular rate and rhythm. S1, S2. Sinus rhythm with LVH. No murmurs. No JVD. Peripheral Pulses: 2+ Radial (R). 2+ Radial (L). 2+ Pedal (R). 2+ Pedal (L) Abdominal Exam: Normal bowel sounds Ankle Exam: Negative ankle edema Lower extremities: Negative lower extremity edema Neuro/Mental Status: A&O x4. Coherent. +optic ataxia, unable to track or accurately count fingers Thoughts/Psych: Normal thought pattern. Appropriate mood and affect. Good judgement and insight Appearance: In no acute distress Skin Exam: Normal inspection. Normal color. Warm. Dry Labs/Diagnostic Data Labs Test 02/10/25 12:49 02/10/25 11:06 02/10/25 08:35 02/10/25 06:32 Range/Units Vitamin B12 Level 643 211-911 pg/mL Vitamin D 25-Hydroxy 30.0 30.0-100 ng/mL Urine Color Light-yellow Yellow Urine Clarity Clear Clear Urine pH 5.5 5.0-9.0 Urine Specific [place] 1.019 1.001-1.035 Urine Protein 1+ H Negative Urine Ketones Negative Negative Urine Blood 1+ H Negative /uL Urine Nitrite Negative Negative Urine Bilirubin Negative Negative Urine Urobilinogen Normal Negative mg/dL Urine Leukocyte Esterase Negative Negative /uL Urine RBC 3 0 - 3 /hpf Urine Microscopic WBC 1 0-3 /HPF Urine Squamous Epithelial Cells None seen <5 /hpf Urine Bacteria None seen None Seen /hpf Urine Mucus Few None Seen Urine Glucose Normal Normal mg/dL Urine Opiates Screen Neg NEGATIVE Urine Fentanyl Screen Neg NEGATIVE Urine Barbiturates Screen Neg NEGATIVE Urine Phencyclidine Screen Neg NEGATIVE Urine Amphetamines Screen Pos NEGATIVE Urine Benzodiazepines Screen Neg NEGATIVE Urine Cocaine Screen Neg NEGATIVE Urine Cannabinoids Screen Neg NEGATIVE Magnesium Level 2.1 1.6-2.6 mg/dL Total Bilirubin 0.4 0.2-1.0 mg/dL Direct Bilirubin 0.1 <0.3 mg/dL Aspartate Amino Transferase (AST) 51 H 13-40 U/L Alanine Aminotransferase (ALT) 35 7-40 U/L Alkaline Phosphatase 88 46-116 U/L Troponin I High Sensitivity 488 *H </=54 ng/L Total Protein 7.7 5.7-8.2 g/dL Albumin 4.1 3.2-4.8 g/dL Test 02/10/25 03:33 Range/Units White Blood Count 10.2 4.4-10.8 10^3/uL Red Blood Count 5.69 4.5-5.90 10^6/uL Hemoglobin 16.0 13.5-17.5 g/dL Hematocrit 47.5 41.0-53.0 % Mean Corpuscular Volume 83.4 80.0-100.0 fL Mean Corpuscular Hemoglobin 28.1 28.0-32.0 pg Mean Corpuscular Hemoglobin Concent 33.7 32.0-36.0 g/dL Red Cell Distribution Width 15.3 H 11.8-14.3 % Platelet Count 154 140-450 10^3/uL Mean Platelet Volume 9.0 6.9-10.8 fL Neutrophils (%) (Auto) 64.8 37.0-80.0 % Lymphocytes (%) (Auto) 26.5 10.0-50.0 % Monocytes (%) (Auto) 5.0 0.0-12.0 % Eosinophils (%) (Auto) 3.3 0.0-7.0 % Basophils (%) (Auto) 0.4 0.0-2.0 % Neutrophils # (Auto) 6.6 1.6-8.6 10 ^3/uL Lymphocytes # (Auto) 2.7 0.4-5.4 10 ^3/uL Monocytes # (Auto) 0.5 0-1.3 10 ^3/uL Eosinophils # (Auto) 0.3 0-0.8 10 ^3/uL Basophils # (Auto) 0 0-0.2 10 ^3/uL Nucleated Red Blood Cells 0.2 % Prothrombin Time 11.6 9.3-11.8 sec Prothrombin Time INR 1.11 0.9-1.15 Activated Partial Thromboplast Time 29.0 24.5-34.5 SEC Sodium Level 139 136-145 mmol/L Potassium Level 3.6 3.5-5.1 mmol/L Chloride Level 104 98-107 mmol/L Carbon Dioxide Level 24 20-31 mmol/L Anion Gap 11 5-15 Blood Urea Nitrogen 21 9-23 mg/dL Creatinine 1.22 0.700-1.30 mg/dL Glomerular Filtration Rate Calc 75 >90 mL/min BUN/Creatinine Ratio 17.2 10.0-20.0 Serum Glucose 104 74-106 mg/dL Calcium Level 9.4 8.7-10.4 mg/dL B-Type Natriuretic Peptide 25.60 0-100 pg/mL Assessment NSTEMI Hypertensive emergency Rule out structural heart disease Acute OS visual disturbance rule out acute CVA Dyslipidemia Acute methamphetamine intoxication Medical noncompliance Obesity Plan/Recommendation (Dr. Barfield) The patient presents with nonspecific ST T-wave segment changes and a preliminary transthoracic echocardiogram revealing no wall motion abnormalities with optimal LVEF. In the absence of cardiac symptoms, poor medical compliance, and methamphetamine abuse, we recommend conservative management at this time. Recommendations include establishment of outpatient Cardiology follow-up for possible ischemic workup if deemed necessary. Continue nicardipine drip for blood pressure control and titrate off as tolerated. Continue CCB and ARB for a target SBP < 140 mmHg. Consider diuretic and/or Coreg as adjunct therapy if necessary. Given complains of acute OS visual disturbance with a history of cerebrovascular accident, obtain a bilateral carotid duplex and Neurology consultation for further evaluation. The patient can benefit from a brain MRI. Kindly call Cardiology if in need of further recommendations. Thank you for allowing us to participate in this patient's care. Please call if you have any questions or concerns. This medical document was created using an electronic medical record system with voice recognition software and computerized dictation system. Although this document has been carefully reviewed, there might still be some phonetic and typographical errors. Occasional wrong-word or ``sound-alike substitutions may have occurred due to the inherent limitations of voice recognition software. These areas are purely typographical due to imperfections of the software programs and do not reflect any compromise in the patient's medical care. Please read the chart carefully and recognize, using context, where these substitutions have occurred. Plan discussed with: Patient, Other NYHA Physical activity limitations: NA Date of Service: Feb 10, 2025 Billing Provider: [facility] Cardiology Common Codes: 50261-[id number] INP/OBS CARE (High) JAENLL BARFIELD MD 02/10/25 2004: Date Seen: Feb 10, 2025 Family History: Diabetes mellitus G8 MOTHER G8 FATHER Hypertension G8 FATHER Allergies: Coded Allergies: NO KNOWN ALLERGIES (Unverified , 02/27/20) Home Meds Active Scripts Pantoprazole Sodium Sesquihydr (Protonix) 40 Mg Tab, 40 MG PO DAILY, #30 TAB Prov:PETE BOYER MD 08/22/21 Ondansetron (Zofran) 4 Mg Tab, 1 TAB PO Q6HR, #20 TAB Prov:PETE BOYER MD 08/22/21 Assessment Attestation note; Patient was seen and examined at bedside in emergency department. Plan was formulated with Ms. Magui Rai cardiology [employer] as above. Briefly this is a 44-year-old man with history of right eye trauma and blindness per patient's report, poorly controlled hypertension in the setting of medication noncompliance, prior history of CVA/TIA, active methamphetamine use. Patient reports3 nights ago he had acute onset loss of left eye vision with return of division later that night. Reports the day after he again had recurrence of similar episode with loss of left eye vision. However this time it continued. I am not certain why patient did not report earlier to the ED however he decided to come to the ED today for this matter. Patient reports the only reason for his presentation to the ED was left eye vision loss/abnormality. Denies ever having chest pain or chest pressure or chest discomfort. Denies any episode of palpitation or heart racing, loss of consciousness, slurred speech, loss of sensation or motor function in upper or lower extremities.In the ED he was found to have elevated troponin levels as well as EKG concerning for ischemic changes. In the absence of any cardiac symptoms and in the setting of hypertensive emergency I believe this is less likely to be ACS. patient may have underlying obstructive CAD, Nonetheless due to concern for CVA and ongoing vision problems I am hesitant to perform coronary angiography that by itself carries additional risk of stroke. Recommendations; - Patient guzman not have chest pain, chest discomfort or other ischemic symptoms - CTA head/ MRI brain to assess for CVA - neurology consultation - If and when patient is clear by neurology he should be started on heparin gtt per ACS protocol - Start Aspirin 81 mg and BB - Patient is active meth user and noncompliant with all medications. Should the patient require intervention noncompliance with DAPT and subsequent risk of stent thrombosis carries high mortality rate. - Alternatively, can consider diagnostic coronary angiography to define anatomy. If there is no high-risk lesion (left main or proximal LAD) recommend starting DAPT with plan for cardiology outpatient follow-up to assess for compliance and plan for intervention accordingly. - If no ischemic work up is done he should be discharged on DAPT for minimum of one year Janell Barfield MD,M.Sc. Interventional Structural cardiology [facility] Feb 10, 2025 14:55 JANELL BARFIELD MD Feb 10, 2025 20:04
[2025-02-10 17:01] LABS: Cholesterol 203 mg/dL (< 200); HDL Cholesterol 39 mg/dL (40-59); Triglycerides 167 mg/dL (< 150)
--- NOTE | 2025-02-10 17:21 | DVH ---
Indication: Left eye visual disturbance Technique: Real-time ultrasound images of the neck vessels with chamorro-scale, color and wave Doppler were obtained. Comparison: None Findings: Mild atherosclerotic plaque bilaterally. The following peak systolic velocities were recorded in cm/sec: Right internal carotid: 106 Right common carotid: 146 Right external carotid: 160 Right internal/common carotid ratio: 0.7 Left internal carotid: 101 Left common carotid: 98 Left external carotid: 188 Left internal/common carotid ratio: 1.1 Right vertebral artery: Patent with normal antegrade direction of flow. Left vertebral artery: Patent with normal antegrade direction of flow. Impression: No hemodynamically significant stenosis by velocity criteria of the bilateral internal carotid arteries. Elevated velocities in the bilateral external carotid arteries, [id number] which could indicate hemodynamically significant stenosis. Mild atherosclerotic plaque bilaterally.
[2025-02-10] MEDS: CARVEDILOL 3.125 MG TAB PO ONE (17:28)
--- NOTE | 2025-02-10 17:49 | DVH ---
CHEST RADIOGRAPH Indication: htn urgency vs emergency Technique: Single frontal view of the chest was obtained COMPARISON: CHEST XRAY 1 VIEW on DOS: 03/05/21 FINDINGS: Lines and Tubes: None Lungs: Clear Pleura: No effusion. No pneumothorax. Cardiomediastinal contours: Cardiomegaly Bones: Unremarkable IMPRESSION: Cardiomegaly
--- NOTE | 2025-02-10 18:03 | DVHSR ---
APPROVED REPORT EXAM: Two-dimensional and M-mode echocardiogram with Doppler and color Doppler. Blood Pressure: 177/121 mmHg INDICATION Cardiomegaly and orthopnea PND RISK FACTORS Obesity: Height: 5'4", Weight: 231 DIMENSIONS LVDd 4.0 (3.8-5.7cm) LA (2D) 4.5 (1.9-4.0cm) Aortic Root 3.4 (2.0-3.7cm) LVDs 2.8 (2.5-4.0cm) LA (MM) (1.9-4.0cm) Aortic Cusp Exc 1.9 (1.5-2.0cm) EF (%) 55.0 (55-70%) Rt. Atrium 4.0 (1.9-4.0cm) Asc. Aorta cm IVSd 1.7 (0.7-1.1cm) RV (D) 4.7 (1.8-2.4cm) PWd 1.7 (0.7-1.1cm) Mitral Valve Mitral Mitral Stenosis E wave 0.76m/s MV Mean GR. mmHg A wave 0.76m/s MV Peak GR. mmHg E/A ratio 1.0 2D MVA cm2 DECEL Time 184ms PRESS 1/2 Time ms Aortic Valve Aortic Valve Aortic Stenosis V1 1.00m/s AO Mean GR. 5mmHg V2 1.53m/s AO Peak GR. 9mmHg LVOT Diameter 2.2 (1.8-2.4cm) Doppler CATHERINE 2.48cm2 Pulmonic Valve V2 1.00m/s Conclusion Left ventricle: The cavity size is normal there is moderate concentric hypertrophy. Systolic function is normal with calculated ejection fraction of 55%. Diastolic function is normal Right ventricle: Systolic function is normal. TR is insufficient to calculate RVSP. Aortic valve: The aortic valve is tricuspid. There is no stenosis or regurgitation. Inferior vena cava: The vessel is normal in size. There is normal respiratory phasic variation consistent with a right atrial pressure of3 mm Hg. Pericardium: There is no pericardial effusion
--- NOTE | 2025-02-10 19:23 | DVHINCON2 ---
Date of service: Feb 10, 2025 Referring Physician Ramon Reason for Consultation Lt eye blindness History of Present Illness Mr. Murdock is a 44 years old gentleman with a history of hypertension, dyslipidemia, prior stroke, the patient came to the hospital on 02/10/2025 with a chief complaint of acute vision changes, at that time, he is alert and fully oriented, he provided the following history I saw her on 02/28/20 for stroke (MRI positive) He has chronic right eye blindness since childhood that will be further described. On 02/08/25, after using amphetamine at home, he noticed blue vision when he walked out of his house, when he returned inside, he noticed blurry vi talya, there was no associated headache, chest pain, focal weakness numbness, and his problems persist till now He sustained a traumatic injury to the right eye, and the right has been blind where he can only see shadows Starting on 02/26/2020, the patient had mild headache, slurred speech, left- sided numbness and mild weakness, MR brain scan confirmed acute stroke. He has good recovery Sometimes between 3503-4525, he had mild headache, slurred speech, left-sided weakness numbness, similar symptoms, he was seen in the local hospital, after a lot of testing, including CT and MRI brain scan and was said to have stroke, he has a good recovery He is on aspirin and cholesterol medication but stopped due to financial reasons He snores sometimes, he reports a good sleep, but he also said somebody said he had shortness of breath when he was asleep. He is not interested in APAP in the hospital UDS, 02/10/2025: Amphetamine CBC, 02/10/2025: Unremarkable BMP, 02/10/2025: Unremarkable TBI/AST/ALT/AP, 02/10/2025: 0.4/51/75/80 HGB A1c, 02/10/2025: 5.7 Troponin one high sensitivity, 02/10/2025: 508, 464, 488 TG/HDL/LDL/HDL, 02/10/2025: 167/203/143/39 Vitamin B12, 02/10/2025: 643 TSH, 02/10/2025: 3.27 Carotid Doppler, 02/10/2025: No hemodynamically significant stenosis by velocity criteria of the bilateral internal carotid arteries. Echocardiogram, 02/10/2025: Left ventricle: The cavity size is normal there is moderate concentric hypertrophy. Systolic function is normal with calculated ejection fraction of 55%. Diastolic function is normal Right ventricle: Systolic function is normal. TR is insufficient to calculate RVSP. Aortic valve: The aortic valve is tricuspid. There is no stenosis or regurgitation. Inferior vena cava: The vessel is normal in size. There is normal respiratory phasic variation consistent with a right atrial pressure of3 mm Hg. Pericardium: There is no pericardial effusion CT head, 02/10/2025: No acute intracranial abnormality MRI, MRA head, 02/28/2020: 1. Acute ischemic infarct at the right centrum semiovale extending to the right putamen measuring 11 mm. 2. No evidence of aneurysm or intracranial stenosis. 3. Mild to moderate small vessel ischemic disease Past Medical History Hypertension, dyslipidemia, prestroke, sleep-related breathing disorder, hypersomnia, right arm blindness secondary to trauma (sees shadows) Past Surgical History No major surgeries Family History: Diabetes mellitus G8 MOTHER G8 FATHER Hypertension G8 FATHER Family History Hypertension, diabetes Social History He was a tobacco smoker, he uses amphetamine, he has no history of alcohol abuse Allergies: Coded Allergies: NO KNOWN ALLERGIES (Unverified , 02/27/20) Home Meds Active Scripts Pantoprazole Sodium Sesquihydr (Protonix) 40 Mg Tab, 40 MG PO DAILY, #30 TAB Prov:PETE BOYER MD 08/22/21 Ondansetron (Zofran) 4 Mg Tab, 1 TAB PO Q6HR, #20 TAB Prov:PETE BOYER MD 08/22/21 Current Medications Current Medications Medications (Trade) Dose Ordered Sig/Hilton Route PRN Reason Start Time Stop Time Status Last Admin Enoxaparin Sodium (Lovenox) 40 mg DAILY SC 02/10/25 10:00 02/10/25 10:00 Nitroglycerin (Ntrostat Sublingual) 0.4 mg Q5MINP PRN SL FOR CHEST PAIN 02/10/25 05:30 Morphine Sulfate 2 mg Q30M PRN IV FOR CHEST PAIN 02/10/25 05:30 Atorvastatin Calcium (Lipitor) 40 mg HS PO 02/10/25 22:00 Nifedipine (Procardia Xl (Time-Release)) 60 mg DAILY PO 02/10/25 10:00 UNV Losartan Potassium (Cozaar Tablet) 100 mg DAILY PO 02/10/25 10:00 UNV Nifedipine (Procardia Xl (Time-Release)) 60 mg DAILY PO 02/11/25 10:00 02/10/25 09:09 DC Losartan Potassium (Cozaar Tablet) 100 mg DAILY PO 02/11/25 10:00 Nifedipine (Procardia Xl (Time-Release)) 60 mg DAILY PO 02/10/25 10:00 02/10/25 14:55 DC Nicardipine/ Sodium Chloride 200 ml @ 50 mls/hr Q4H IV 02/10/25 10:15 02/10/25 18:53 Nifedipine (Procardia Xl (Time-Release)) 90 mg DAILY PO 02/11/25 10:00 Carvedilol (Coreg Tablet) 6.25 mg Q12HR PO 02/11/25 10:00 Review of Systems As above, the other systems are negative Vital Signs Vital Signs Date Time Temp Pulse Resp B/P (MAP) Pulse Ox O2 Delivery O2 Flow Rate FiO2 02/10/25 19:00 84 25 117/69 (85) 94 02/10/25 11:45 Room Air* 0 21 02/10/25 11:29 97.6 97.6 Physical Exam GENERAL EXAM: General: the patient is well developed and nourished. No acute distress. HEENT: Normocephalic, neck is supple, no carotid bruits. No mass. RESPIRATORY: Normal respiratory effort with symmetrical lung expansion. Lungs clear to auscultation. CARDIOVASCULAR: Regular rate and rhythm with no murmurs. S1, S2. ABDOMEN: Soft, nontender, normal bowel sound NEUROLOGICAL: MENTAL STATUS: Awake and alert. Oriented to person, place, time and general circumstances. Able to give personal history SPEECH, LANGUAGE, HIGHER CORTICAL FUNCTION: no aphasia or dysathria. CRANIAL NERVES: #2: Intact visual bryant to confrontation. Right I can only see shadows, the left eye sees blurry vision #3,4,6: Pupils are equal, round and reactive. EOMs full and conjugate. No nystagmus. #5: Facial sensation intact in all three divisions bilaterally. Mandibular strength intact. #7: Facial muscles symmetrical and strength intact. #8: Hearing grossly normal to voice. #9,10: Uvula and soft palate rise in the midline. Swallow and voice are normal. #11: Trapezius and sternomastoid strength intact bilaterally. #12: Tongue midline. No fasciculations or atrophy. SENSATION: Sensation to touch and pinprick is normal. MOTOR: Normal tone in the upper and lower extremity. Normal muscle bulk. No fasciculations. No abnormal movements or posturing. Muscle strength of the major groups in the upper extremities is 5/5. Muscle strength of the major groups in the lower extremities is 5/5. REFLEXES: Deep tendon reflexes normal and symmetrical. No pathological reflexes. CEREBELLAR/COORDINATION: Finger to nose and heel to james are normal bilaterally. GAIT/STATION: deferred. Labs/Diagnostic Data Labs Test 02/10/25 12:49 02/10/25 11:06 02/10/25 08:35 02/10/25 06:32 Range/Units Triglycerides Level 167 H < 150 mg/dL Cholesterol Level 203 H < 200 mg/dL LDL Cholesterol 143 H < 100 mg/dL HDL Cholesterol 39 L 40-59 mg/dL Vitamin B12 Level 643 211-911 pg/mL Vitamin D 25-Hydroxy 30.0 30.0-100 ng/mL Urine Color Light-yellow Yellow Urine Clarity Clear Clear Urine pH 5.5 5.0-9.0 Urine Specific [place] 1.019 1.001-1.035 Urine Protein 1+ H Negative Urine Ketones Negative Negative Urine Blood 1+ H Negative /uL Urine Nitrite Negative Negative Urine Bilirubin Negative Negative Urine Urobilinogen Normal Negative mg/dL Urine Leukocyte Esterase Negative Negative /uL Urine RBC 3 0 - 3 /hpf Urine Microscopic WBC 1 0-3 /HPF Urine Squamous Epithelial Cells None seen <5 /hpf Urine Bacteria None seen None Seen /hpf Urine Mucus Few None Seen Urine Glucose Normal Normal mg/dL Urine Opiates Screen Neg NEGATIVE Urine Fentanyl Screen Neg NEGATIVE Urine Barbiturates Screen Neg NEGATIVE Urine Phencyclidine Screen Neg NEGATIVE Urine Amphetamines Screen Pos NEGATIVE Urine Benzodiazepines Screen Neg NEGATIVE Urine Cocaine Screen Neg NEGATIVE Urine Cannabinoids Screen Neg NEGATIVE Magnesium Level 2.1 1.6-2.6 mg/dL Total Bilirubin 0.4 0.2-1.0 mg/dL Direct Bilirubin 0.1 <0.3 mg/dL Aspartate Amino Transferase (AST) 51 H 13-40 U/L Alanine Aminotransferase (ALT) 35 7-40 U/L Alkaline Phosphatase 88 46-116 U/L Troponin I High Sensitivity 488 *H </=54 ng/L Total Protein 7.7 5.7-8.2 g/dL Albumin 4.1 3.2-4.8 g/dL Thyroid Stimulating Hormone (TSH) 3.27 0.55-4.78 uIU/mL Test 02/10/25 03:33 Range/Units White Blood Count 10.2 4.4-10.8 10^3/uL Red Blood Count 5.69 4.5-5.90 10^6/uL Hemoglobin 16.0 13.5-17.5 g/dL Hematocrit 47.5 41.0-53.0 % Mean Corpuscular Volume 83.4 80.0-100.0 fL Mean Corpuscular Hemoglobin 28.1 28.0-32.0 pg Mean Corpuscular Hemoglobin Concent 33.7 32.0-36.0 g/dL Red Cell Distribution Width 15.3 H 11.8-14.3 % Platelet Count 154 140-450 10^3/uL Mean Platelet Volume 9.0 6.9-10.8 fL Neutrophils (%) (Auto) 64.8 37.0-80.0 % Lymphocytes (%) (Auto) 26.5 10.0-50.0 % Monocytes (%) (Auto) 5.0 0.0-12.0 % Eosinophils (%) (Auto) 3.3 0.0-7.0 % Basophils (%) (Auto) 0.4 0.0-2.0 % Neutrophils # (Auto) 6.6 1.6-8.6 10 ^3/uL Lymphocytes # (Auto) 2.7 0.4-5.4 10 ^3/uL Monocytes # (Auto) 0.5 0-1.3 10 ^3/uL Eosinophils # (Auto) 0.3 0-0.8 10 ^3/uL Basophils # (Auto) 0 0-0.2 10 ^3/uL Nucleated Red Blood Cells 0.2 % Prothrombin Time 11.6 9.3-11.8 sec Prothrombin Time INR 1.11 0.9-1.15 Activated Partial Thromboplast Time 29.0 24.5-34.5 SEC Sodium Level 139 136-145 mmol/L Potassium Level 3.6 3.5-5.1 mmol/L Chloride Level 104 98-107 mmol/L Carbon Dioxide Level 24 20-31 mmol/L Anion Gap 11 5-15 Blood Urea Nitrogen 21 9-23 mg/dL Creatinine 1.22 0.700-1.30 mg/dL Glomerular Filtration Rate Calc 75 >90 mL/min BUN/Creatinine Ratio 17.2 10.0-20.0 Serum Glucose 104 74-106 mg/dL Hemoglobin A1c 5.7 <5.7 % A1C Calcium Level 9.4 8.7-10.4 mg/dL B-Type Natriuretic Peptide 25.60 0-100 pg/mL Assessment Acute left eye monocular vision disturbance Rule out acute stroke Rule out acute left optic nerve neuropathy Chronic stroke with left-sided weakness, good recovery Amphetamine abuse Poor compliance Sleep-related breathing disorder to rule out sleep apnea Obesity Elevated troponin one Plan/Recommendation Monitoring Supportive treatment ICU CARE MR head Aspirin 81 mg, daily Plavix 75 mg daily, for 21 days Lipitor 40 mg daily Quit substance abuse Weight control A trial of APAP in the hospital when he is ready Cardiology on case More recommendation per clinical course PROGNOSIS: POOR THIS MEDICAL DOCUMENT WAS CREATED USING AN ELECTRONIC MEDICAL RECORD SYSTEM WITH [employer] COMPUTERIZED DICTATION SYSTEM. ALTHOUGH THIS DOCUMENT HAS BEEN CAREFULLY REVIEWED, THERE MAY STILL BE SOME PHONETIC AND TYPOGRAPHICAL ERRORS. THESE AREAS ARE PURELY TYPOGRAPHICAL DUE TO IMPERFECTIONS OF THE SOFTWARE PROGRAMS, AND DO NOT REFLECT ANY COMPROMISE IN THE PATIENT'S MEDICAL CARE. Plan discussed with: Patient, Other LINDA BARRY MD Feb 10, 2025 19:23
--- NOTE | 2025-02-10 19:32 | DVHPNRES ---
Progress Note Date Seen: Feb 10, 2025 Resident Creating Document: CONRAD WOODSON RESIDENT Medical Necessity Reason Pt with a Central, PICC or Fol: No Subjective Review of Systems Kenji Dupont is a 44 Year old with past medical history of right eye blindness post mechanical trauma during childhood, dyslipidemia, hypertension ( not on any home medications due to insurance issues ), TIA presented to the hospital with complaints of blurring of vision in the left eye since 2 days. Patient says that he had around 10 beers the night before after which his vision was blurred. Patient reports that the patient returned sometime later but turned blurry again. 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 Respiratory: No cough, and wheezing. Gastrointestinal: Denies nausea, vomiting, dysphagia, odynophagia, heartburn, abdominal pain, flatulence, bloating, diarrhea, constipation, change in stool, or blood in stool. Genitourinary: No dysuria, hematuria, discharge, frequency, urgency, nocturia, incontinence, and urinary retention. Endocrine: No heat or cold intolerance, polydipsia, polyuria, and polyphagia. Neurological: No dizziness, extremity weakness and numbness, tremors, gait disturbance, seizures, and memory impairment. Psychiatric: Denies depression, anxiety,or insomnia. Musculoskeletal: Denies neck pain, stiffness and swelling, back pain, muscle weakness, joint pain, stiffness, swelling, or limited range of motion. Skin: No rashes, itching, skin lesion, changes in hair, nail, skin texture and breast. Hematologic/Lymphatic: Denies easy bruising, bleeding tendencies, or lymph node enlargement. Objective vital signs Vital Sign Date Time Temp Pulse Resp B/P (MAP) Pulse Ox O2 Delivery O2 Flow Rate FiO2 02/10/25 19:00 84 25 117/69 (85) 94 02/10/25 11:45 Room Air* 0 21 12/2/25 11:29 97.6 97.6 medications Current Medications Medications Dose Ordered Sig/Hilton Route Start Time Stop Time Status Last Admin Dose Admin Enoxaparin Sodium 40 mg DAILY SC 02/10/25 10:00 02/10/25 10:00 40 MG Nitroglycerin 0.4 mg Q5MINP PRN SL 02/10/25 05:30 Morphine Sulfate 2 mg Q30M PRN IV 02/10/25 05:30 Atorvastatin Calcium 40 mg HS PO 02/10/25 22:00 Nifedipine 60 mg DAILY PO 02/10/25 10:00 UNV Losartan Potassium 100 mg DAILY PO 02/10/25 10:00 UNV Losartan Potassium 100 mg DAILY PO 02/11/25 10:00 Nicardipine/ Sodium Chloride 200 ml @ 50 mls/hr Q4H IV 02/10/25 10:15 02/10/25 18:53 50 MLS/HR Nifedipine 90 mg DAILY PO 02/11/25 10:00 Carvedilol 6.25 mg Q12HR PO 02/11/25 10:00 Examination General Appearance: Alert, Oriented X3, Cooperative, No acute distress HEENT: Atraumatic, PERRLA, EOMI, Mucous membrane moist/pink Respiratory: Clear to auscultation, Normal air movement Cardiovascular: Regular rate, Normal S1, Normal S2, No murmurs, no chest wall tenderness Abdominal: Normal bowel sounds, Soft, No tenderness, No hepatospenomegaly, No masses Extremities: No clubbing, No cyanosis, No edema, Normal pulses, No tenderness/swelling Skin: No rashes, No breakdown, No significant lesion Neuro: Normal gait, Normal speech, Strength at 5/5 X4 ext, Normal tone, Sensation intact, Cranial nerves 3-12 NL, Reflexes 2+ Psych/Mental Status: Mental status NL, Mood NL laboratory and microbiology Laboratory Tests 02/10/25 03:33 Test 02/10/25 03:33 Range/Units Serum Glucose 104 74-106 mg/dL Problem List/Assessment/Plan Problem List/Assessment/Plan Assessment/Plan Hypertensive emergency NSTEMI type 1 versus type 2 Essential hypertension EKG: No acute ischemic changes, continue monitoring EKG Troponin in 500s Atorvastatin Losartan Nifedipine Echocardiography and BNP ordered, pending results Cardiology Consult History of dyslipidemia History of TIA Head CT shows no acute abnormality. Atorvastatin Neurology consult MRI head active methamphetamine abuse counseled on the importance of abstinence for the 13 minutes grade 2 obesity Counseled on the importance of diet and exercise history of right eye blindness post mechanical trauma during childhood Follow up with PCP on discharge GI prophylaxis: Pantoprazole DVT prophylaxis: Lovenox Diet: Cardiac Goals of care Full code status Case discussed with Dr. Byrd Plan discussed with: Patient My Orders My Orders Orders - CONRAD WOODSON Procedure Category Date Status Time * Cardiology Consult CONS 02/10/25 Transmitted 13:43 Brain Head Wo Contrast MRI 02/10/25 Logged 18:07 Acute Hepatitis Panel LAB 02/10/25 In Process 18:07 Date of Service: Feb 10, 2025 Billing Provider: GRAHAM PRYOR MD Common Visit Codes: [id number] INP/OBS CARE(HIGH) CONRAD WOODSON RESIDENT Feb 10, 2025 19:32
[2025-02-10] MEDS ORDERED: LORazepam 2MG/ML-1ML VIAL IV PRN (21:15)
[2025-02-10] MEDS: ATORVASTATIN 20 MG TAB PO SCH (22:00)
[2025-02-10] MEDS: CLOPIDOGREL BISULFATE 75 MG TAB PO ONE (22:01)
[2025-02-11] VITALS (61 sets, daily range): BP systolic 106–160; BP diastolic 27–101; PULSE 61–101; RESP 13–35; TEMP 97.7–98.6; O2SAT 90–100
[2025-02-11 02:34] LABS: Hematocrit 45.1 % (41.0-53.0); Hemoglobin 15.5 g/dL (13.5-17.5); Mean Corpuscular Hemoglobin 28.9 pg (28.0-32.0); Mean Corpuscular Volume 84.0 fL (80.0-100.0); Nucleated Red Blood Cells % 0.1 %
[2025-02-11 02:53] LABS: Alanine Aminotransferase 31 U/L (7-40); Albumin 4.1 g/dL (3.2-4.8); Alkaline Phosphatase 83 U/L (46-116); Anion Gap 11 (5-15); BUN/Creatinine Ratio 16.0 (10.0-20.0); Bilirubin, Total 0.5 mg/dL (0.2-1.0); Blood Urea Nitrogen 20 mg/dL (9-23); Calcium 9.4 mg/dL (8.7-10.4); Carbon Dioxide 23 mmol/L (20-31); Chloride 106 mmol/L (98-107); Glucose 89 mg/dL (74-106); Potassium 3.7 mmol/L (3.5-5.1); Sodium 140 mmol/L (136-145); Total Protein 7.6 g/dL (5.7-8.2)
[2025-02-11] MEDS ORDERED: ACETAMINOPHEN 325 MG TAB PO ONE (05:15)
--- NOTE | 2025-02-11 09:10 | DVHPN2 ---
Progress Note - Dictate Date Seen: Feb 11, 2025 Medical Necessity Reason Pt with a Central, PICC or Fol: No Subjective Mr. Murdock is a 44 years old gentleman with a history of hypertension, dyslipidemia, prior stroke, the patient came to the hospital on 02/10/2025 with a chief complaint of acute vision changes I saw her on 02/28/20 for stroke (MRI positive) I have seen and examined the patient, I have discussed with his nurse, the case was discussed with Dr. Aemlia Byrd. He is doing fine, he is alert and fully oriented, he reports no change in the left eye blurry vision, but he reports no new complaints I have reviewed his MR brain obtained on 02/11/2025, I did not see similar changes in the MRI head obtained in 02/2020 Blood pressure fluctuates UDS, 02/10/2025: Amphetamine CBC, 02/10/2025: Unremarkable BMP, 02/10/2025: Unremarkable TBI/AST/ALT/AP, 02/10/2025: 0.4/51/75/80 HGB A1c, 02/10/2025: 5.7 Troponin one high sensitivity, 02/10/2025: 508, 464, 488 TG/HDL/LDL/HDL, 02/10/2025: 167/203/143/39, Vitamin B12, 02/10/2025: 643 TSH, 02/10/2025: 3.27 Carotid Doppler, 02/10/2025: No hemodynamically significant stenosis by velocity criteria of the bilateral internal carotid arteries. Echocardiogram, 02/10/2025: Left ventricle: The cavity size is normal there is moderate concentric hypertrophy. Systolic function is normal with calculated ejection fraction of 55%. Diastolic function is normal Right ventricle: Systolic function is normal. TR is insufficient to calculate RVSP. Aortic valve: The aortic valve is tricuspid. There is no stenosis or regurgitation. Inferior vena cava: The vessel is normal in size. There is normal respiratory phasic variation consistent with a right atrial pressure of3 mm Hg. Pericardium: There is no pericardial effusion CT head, 02/10/2025: No acute intracranial abnormality MRI, MRA head, 02/28/2020: 1. Acute ischemic infarct at the right centrum semiovale extending to the right putamen measuring 11 mm. 2. No evidence of aneurysm or intracranial stenosis. 3. Mild to moderate small vessel ischemic disease MRI head, 02/11/2025: No acute infarct or hemorrhage. Chronic microvascular ischemic changes. Mild T1 and T2 hyperintense areas of signal abnormality in the posterior right globe, nonspecific. Differentials include hemorrhage, retinal detachment, or mass. Recommend ophthalmologic consultation (this is a new lesion company MRI head obtained on 02/28/2020) (I saw a small lacunar stroke in the right hemisphere at the same place where he had acute stroke in 02/2020) vital signs Vital Sign Date Time Temp Pulse Resp B/P (MAP) Pulse Ox O2 Delivery O2 Flow Rate FiO2 02/11/25 06:30 85 21 120/76 (91) 94 02/11/25 06:00 Nasal Cannula* 3 32 02/11/25 04:15 97.7 97.7 Total Intake and Output 02/10/25 02/10/25 02/11/25 15:00 23:00 07:00 Intake Total 300 ml 350 ml 225 ml Output Total 300 ml 600 ml Balance 0 ml 350 ml -375 ml medications Current Medications Medications Dose Ordered Sig/Hilton Route Start Time Stop Time Status Last Admin Dose Admin Enoxaparin Sodium 40 mg DAILY SC 02/10/25 10:00 02/10/25 10:00 40 MG Nitroglycerin 0.4 mg Q5MINP PRN SL 02/10/25 05:30 Morphine Sulfate 2 mg Q30M PRN IV 02/10/25 05:30 Atorvastatin Calcium 40 mg HS PO 02/10/25 22:00 02/10/25 22:00 40 MG Nifedipine 60 mg DAILY PO 02/10/25 10:00 UNV Losartan Potassium 100 mg DAILY PO 02/10/25 10:00 UNV Losartan Potassium 100 mg DAILY PO 02/11/25 10:00 Nicardipine/ Sodium Chloride 200 ml @ 50 mls/hr Q4H IV 02/10/25 10:15 02/11/25 02:33 50 MLS/HR Nifedipine 90 mg DAILY PO 02/11/25 10:00 Carvedilol 6.25 mg Q12HR PO 02/11/25 10:00 Lorazepam 1 mg ONCE PRN IV 02/10/25 21:15 Aspirin 81 mg DAILY PO 02/11/25 10:00 Clopidogrel Bisulfate 75 mg DAILY PO 02/11/25 10:00 03/02/25 23:00 Ondansetron HCl 4 mg Q8HPRN PRN IV 02/11/25 05:15 Acetaminophen 650 mg Q6HP PRN PO 02/11/25 06:15 objective General: the patient is well developed and nourished. No acute distress. MENTAL STATUS: Awake and alert. Oriented to person, place, time and general circumstances. Able to give personal history SPEECH, LANGUAGE, HIGHER CORTICAL FUNCTION: no aphasia or dysathria. CRANIAL NERVES: Intact visual bryant to confrontation. Right eye sees shadows, the left eye sees blurry vision. Pupils are equal, round and reactive. EOMs full and conjugate. No nystagmus. Facial sensation intact in all three divisions bilaterally. Mandibular strength intact. Facial muscles symmetrical and strength intact. SENSATION: Sensation to touch and pinprick is normal. MOTOR: Normal tone in the upper and lower extremity. Normal muscle bulk. No fasciculations. No abnormal movements or posturing. Muscle strength of the major groups in the extremities is 5/5. REFLEXES: Deep tendon reflexes normal and symmetrical. No pathological reflexes. CEREBELLAR/COORDINATION: Finger to nose and heel to james are normal b laboratory and microbiology Laboratory Tests 02/11/25 02:09 Test 02/11/25 02:09 Range/Units Serum Glucose 89 74-106 mg/dL Problem List Acute left eye monocular vision disturbance Rule out acute stroke Rule out acute left optic nerve neuropathy Hypertension emergency Chronic stroke with left-sided weakness, good recovery Amphetamine abuse Poor compliance Sleep-related breathing disorder to rule out sleep apnea Obesity Elevated troponin one/heart attack Abnormal MRI right orbit ? Hemorrhage Assessment/Plan Monitoring Supportive treatment ICU CARE MR orbits Aspirin 81 mg, daily Plavix 75 mg daily, for 21 days Lipitor 40 mg daily Quit substance abuse Weight control A trial of APAP in the hospital when he is ready Cardiology on case Transferred to higher level care More recommendation per clinical course THIS MEDICAL DOCUMENT WAS CREATED USING AN ELECTRONIC MEDICAL RECORD SYSTEM WITH [employer] DICTATION SYSTEM. ALTHOUGH THIS DOCUMENT HAS BEEN CAREFULLY REVIEWED, THERE MAY STILL BE SOME PHONETIC AND TYPOGRAPHICAL ERRORS. THESE AREAS ARE PURELY TYPOGRAPHICAL DUE TO IMPERFECTIONS OF THE SOFTWARE PROGRAMS, AND DO NOT REFLECT ANY COMPROMISE IN THE PATIENT'S MEDICAL CARE. Prognosis poor Plan discussed with: Patient, Other Critical Care Time(min): 45 LINDA BARRY MD Feb 11, 2025 09:10
--- NOTE | 2025-02-11 09:57 | DVH ---
MRI BRAIN WITHOUT CONTRAST History: r/o stroke Comparison: CT HEAD WITHOUT CONTRAST on DOS: 02/10/25 Technique: Multi-sequence, multiplanar magnetic resonance images of the brain are reviewed. Findings: No acute hemorrhage or infarct is seen. Scattered T2/FLAIR hyperintense foci in the periventricular and subcortical white matter, suggestive of chronic microvascular disease. The ventricles and sulci are mildly enlarged, compatible with generalized parenchymal volume loss. There is no evidence of mass or mass effect. There are no abnormal extra-axial fluid collections. Mild T1 and T2 hyperintense areas of signal abnormality in the posterior right globe. The major intracranial blood vessels retain normal flow voids consistent with their patency. Scattered mucosal thickening of the paranasal sinuses. Mastoid air cells are clear.. IMPRESSION: No acute infarct or hemorrhage. Chronic microvascular ischemic changes. Mild T1 and T2 hyperintense areas of signal abnormality in the posterior right globe, nonspecific. Differentials include hemorrhage, retinal detachment, or mass. Recommend ophthalmologic consultation.
[2025-02-11] MEDS: CLOPIDOGREL BISULFATE 75 MG TAB PO SCH (10:10)
[2025-02-11] MEDS ORDERED: LORazepam 2MG/ML-1ML VIAL IV PRN (10:45)
[2025-02-11] MEDS: CARVEDILOL 3.125 MG TAB PO SCH (11:06)
--- NOTE | 2025-02-11 11:06 | DVHPN2 ---
Consult Progress Note Date Seen: Feb 11, 2025 Objective vital signs Vital Sign Date Time Temp Pulse Resp B/P (MAP) Pulse Ox O2 Delivery O2 Flow Rate FiO2 02/11/25 10:12 147/91 02/11/25 06:30 85 21 94 02/11/25 06:00 Nasal Cannula* 3 32 02/11/25 04:15 97.7 97.7 Total Intake and Output 02/10/25 02/10/25 02/11/25 15:00 23:00 07:00 Intake Total 300 ml 350 ml 225 ml Output Total 300 ml 600 ml Balance 0 ml 350 ml -375 ml medications Current Medications Medications Dose Ordered Sig/Hilton Route Start Time Stop Time Status Last Admin Dose Admin Enoxaparin Sodium 40 mg DAILY SC 02/10/25 10:00 02/10/25 10:00 40 MG Nitroglycerin 0.4 mg Q5MINP PRN SL 02/10/25 05:30 Morphine Sulfate 2 mg Q30M PRN IV 02/10/25 05:30 Atorvastatin Calcium 40 mg HS PO 02/10/25 22:00 02/10/25 22:00 40 MG Nifedipine 60 mg DAILY PO 02/10/25 10:00 UNV Losartan Potassium 100 mg DAILY PO 02/10/25 10:00 UNV Losartan Potassium 100 mg DAILY PO 02/11/25 10:00 Nicardipine/ Sodium Chloride 200 ml @ 50 mls/hr Q4H IV 02/10/25 10:15 02/11/25 02:33 50 MLS/HR Nifedipine 90 mg DAILY PO 02/11/25 10:00 02/11/25 10:12 90 MG Carvedilol 6.25 mg Q12HR PO 02/11/25 10:00 Aspirin 81 mg DAILY PO 02/11/25 10:00 02/11/25 10:10 81 MG Clopidogrel Bisulfate 75 mg DAILY PO 02/11/25 10:00 03/02/25 23:00 02/11/25 10:10 75 MG Ondansetron HCl 4 mg Q8HPRN PRN IV 02/11/25 05:15 Acetaminophen 650 mg Q6HP PRN PO 02/11/25 06:15 Lorazepam 1 mg ONCE PRN IV 02/11/25 10:45 laboratory and microbiology Laboratory Tests 02/11/25 02:09 Test 02/11/25 02:09 Range/Units Serum Glucose 89 74-106 mg/dL Problem List/Assessment/Plan Problem List/Assessment/Plan NSTEMI Hypertensive emergency Rule out structural heart disease Acute OS visual disturbance rule out acute CVA Dyslipidemia Acute methamphetamine intoxication Medical noncompliance Obesity Plan/Recommendation (Dr. Rothman) The patient presents with nonspecific ST T-wave segment changes and a preliminary transthoracic echocardiogram revealing no wall motion abnormalities with optimal LVEF. In the absence of cardiac symptoms, poor medical compliance, and methamphetamine abuse, we recommend conservative management at this time. Recommendations include establishment of outpatient Cardiology follow-up for possible ischemic workup if deemed necessary. Continue nicardipine drip for blood pressure control and titrate off as tolerated. Continue CCB and ARB for a target SBP < 140 mmHg. Consider diuretic and/or Coreg as adjunct therapy if necessary. Given complains of acute OS visual disturbance with an abnormal brain MRI suggestive of right orbital hemorrhage vs mass vs retinal detachment, we will defer from any invasive cardiac work-up at this time given latest findings. Primary care team has been notified. Kindly call Cardiology if in need of further recommendations. Thank you for allowing us to participate in this patient's care. Please call if you have any questions or concerns. This medical document was created using an electronic medical record system with voice recognition software and computerized dictation system. Although this document has been carefully reviewed, there might still be some phonetic and typographical errors. Occasional wrong-word or ``sound-alike substitutions may have occurred due to the inherent limitations of voice recognition software. These areas are purely typographical due to imperfections of the software programs and do not reflect any compromise in the patient's medical care. Please read the chart carefully and recognize, using context, where these substitutions have occurred. Plan discussed with: Other (Primary care team) Date of Service: Feb 11, 2025 Billing Provider: LAWRENCE RAI Cardiology Common Codes: [id number] HOSP CARE([facility] LAWRENCE RAI Feb 11, 2025 11:06
[2025-02-11 11:18] LABS: Hepatitis B Surface Antigen Negative (Negative); Hepatitis C Antibody Negative (Negative)
[2025-02-11] MEDS: LOSARTAN POTASSIUM 50 MG TAB PO SCH (11:34)
[2025-02-11] MEDS: ONDANSETRON HCL 4 MG/2 ML VIAL IV PRN (13:56)
[2025-02-11] MEDS ORDERED: LOSA-533 PO (15:38)
[2025-02-11] MEDS ORDERED: CLON0.1T PO (15:45)
[2025-02-11] MEDS ORDERED: ATOR20TA50 PO (15:45)
[2025-02-11] MEDS ORDERED: LABE200T33 PO (15:45)
--- NOTE | 2025-02-11 16:16 | DVHPNRES ---
Progress Note Date Seen: Feb 11, 2025 Resident Creating Document: CONRAD WOODSON Medical Necessity Reason Pt with a Central, PICC or Fol: No Subjective Review of Systems Patient seen at bedside. Persistent blurring of vision. MRI revealed intraorbital hemorrhage/mass. Planning to higher level of care. 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 Patient says that he had around 10 beers the night before after which his vision was blurred. Patient reports that the patient returned sometime later but turned blurry again. 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 Respiratory: No cough, and wheezing. Gastrointestinal: Denies nausea, vomiting, dysphagia, odynophagia, heartburn, abdominal pain, flatulence, bloating, diarrhea, constipation, change in stool, or blood in stool. Genitourinary: No dysuria, hematuria, discharge, frequency, urgency, nocturia, incontinence, and urinary retention. Endocrine: No heat or cold intolerance, polydipsia, polyuria, and polyphagia. Neurological: No dizziness, extremity weakness and numbness, tremors, gait disturbance, seizures, and memory impairment. Psychiatric: Denies depression, anxiety,or insomnia. Musculoskeletal: Denies neck pain, stiffness and swelling, back pain, muscle weakness, joint pain, stiffness, swelling, or limited range of motion. Skin: No rashes, itching, skin lesion, changes in hair, nail, skin texture and breast. Hematologic/Lymphatic: Denies easy bruising, bleeding tendencies, or lymph node enlargement. Objective vital signs Vital Sign Date Time Temp Pulse Resp B/P (MAP) Pulse Ox O2 Delivery O2 Flow Rate FiO2 12/3/25 15:30 93 24 138/84 (102) 94 02/11/25 14:00 Nasal Cannula* 3 32 02/11/25 12:32 97.8 97.8 Total Intake and Output 02/10/25 02/10/25 02/11/25 15:00 23:00 07:00 Intake Total 300 ml 350 ml 250 ml Output Total 300 ml 600 ml Balance 0 ml 350 ml -350 ml medications Current Medications Medications Dose Ordered Sig/Hilton Route Start Time Stop Time Status Last Admin Dose Admin Nitroglycerin 0.4 mg Q5MINP PRN SL 02/10/25 05:30 Morphine Sulfate 2 mg Q30M PRN IV 02/10/25 05:30 Atorvastatin Calcium 40 mg HS PO 02/10/25 22:00 02/10/25 22:00 40 MG Nifedipine 60 mg DAILY PO 02/10/25 10:00 UNV Losartan Potassium 100 mg DAILY PO 02/10/25 10:00 UNV Losartan Potassium 100 mg DAILY PO 02/11/25 10:00 02/11/25 11:34 100 MG Nicardipine/ Sodium Chloride 200 ml @ 50 mls/hr Q4H IV 02/10/25 10:15 02/11/25 02:33 50 MLS/HR Nifedipine 90 mg DAILY PO 02/11/25 10:00 02/11/25 10:12 90 MG Carvedilol 6.25 mg Q12HR PO 02/11/25 10:00 02/11/25 11:06 6.25 MG Ondansetron HCl 4 mg Q8HPRN PRN IV 02/11/25 05:15 02/11/25 13:56 4 MG Acetaminophen 650 mg Q6HP PRN PO 02/11/25 06:15 Lorazepam 1 mg ONCE PRN IV 02/11/25 10:45 Examination General Appearance: Alert, Oriented X3, Cooperative, No acute distress HEENT: Atraumatic, PERRLA, EOMI, Mucous membrane moist/pink Respiratory: Clear to auscultation, Normal air movement Cardiovascular: Regular rate, Normal S1, Normal S2, No murmurs, no chest wall tenderness Abdominal: Normal bowel sounds, Soft, No tenderness, No hepatospenomegaly, No masses Extremities: No clubbing, No cyanosis, No edema, Normal pulses, No tenderness/swelling Skin: No rashes, No breakdown, No significant lesion Neuro: Normal gait, Normal speech, Strength at 5/5 X4 ext, Normal tone, Sensation intact, Cranial nerves 3-12 NL, Reflexes 2+ Psych/Mental Status: Mental status NL, Mood NL laboratory and microbiology Laboratory Tests 02/11/25 02:09 Test 02/11/25 02:09 Range/Units Serum Glucose 89 74-106 mg/dL Problem List/Assessment/Plan Problem List/Assessment/Plan Assessment/Plan Possible Intraorbital bleed MRI brain:T1 and T2 hyperintense areas of signal abnormality in the posterior right globe, nonspecific. Differentials include hemorrhage, retinal detachment, or mass Blood pressure control Referral to higher level of care ophthalmology consult Hypertensive emergency NSTEMI type 1 versus type 2 Essential hypertension EKG: No acute ischemic changes, continue monitoring EKG Troponin in 500s Atorvastatin Losartan Nifedipine Echocardiography and BNP ordered, pending results Cardiology Consult Nicardipine drip ANNE transfer History of dyslipidemia History of TIA Head CT shows no acute abnormality. 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 Byrd Plan discussed with: Patient My Orders My Orders Orders - CONRAD WOODSON Procedure Category Date Status Time Brain Head Wo Contrast MRI 02/11/25 Resulted 18:07 Complete Blood Count LAB 02/12/25 Verified 04:00 Comprehensive LAB 02/12/25 Verified Metabolic Panel 04:00 Date of Service: Feb 11, 2025 Billing Provider: GRAHAM PRYOR MD Common Visit Codes: [id number] INP/OBS CARE(HIGH) CONRAD WOODSON RESIDENT Feb 11, 2025 16:16
--- NOTE | 2025-02-11 18:21 | DVH ---
EXAM: MRI MRI ORBITS W OUT CONTRAST DATE OF SERVICE: 02/11/2025 03:57 PM ORDERING PHYSICIAN: CONRAD WOODSON REASON FOR EXAM: Abnormal right orbit on MR head scan TECHNIQUE: MRA images of the orbits were acquired without IV contrast. COMPARISON: MRI BRAIN HEAD WO CONTRAST on DOS: 02/11/25, CT HEAD WITHOUT CONTRAST on DOS: 02/10/25, BRAIN HEAD WO CONTRAST on DOS: 02/28/20 FINDINGS: There is a right retinal detachment. The left globe appears unremarkable. The extraocular muscles are symmetric. The optic nerves are symmetric. There is no evidence for intraconal or extraconal mass, inflammatory process, or fluid collection. IMPRESSION: Right retinal detachment. Please correlate with ophthalmological examination. If there is concern for underlying mass, contrast orbital MRI examination is recommended
[2025-02-12] VITALS (26 sets, daily range): BP systolic 117–161; BP diastolic 77–118; PULSE 71–92; RESP 11–27; TEMP 97.8–98.4; O2SAT 91–100
[2025-02-12 03:57] LABS: Hematocrit 45.3 % (41.0-53.0); Hemoglobin 15.3 g/dL (13.5-17.5); Mean Corpuscular Hemoglobin 28.4 pg (28.0-32.0); Mean Corpuscular Volume 84.1 fL (80.0-100.0); Nucleated Red Blood Cells % 0.1 %
[2025-02-12 04:27] LABS: Alanine Aminotransferase 32 U/L (7-40); Albumin 4.0 g/dL (3.2-4.8); Alkaline Phosphatase 76 U/L (46-116); Anion Gap 11 (5-15); BUN/Creatinine Ratio 14.4 (10.0-20.0); Bilirubin, Total 0.5 mg/dL (0.2-1.0); Blood Urea Nitrogen 18 mg/dL (9-23); Calcium 9.2 mg/dL (8.7-10.4); Carbon Dioxide 25 mmol/L (20-31); Chloride 105 mmol/L (98-107); Glucose 77 mg/dL (74-106); Potassium 3.9 mmol/L (3.5-5.1); Sodium 141 mmol/L (136-145); Total Protein 7.5 g/dL (5.7-8.2)
--- NOTE | 2025-02-12 09:44 | DVHPN2 ---
Progress Note - Dictate Date Seen: Feb 12, 2025 Medical Necessity Reason Pt with a Central, PICC or Fol: No Subjective Mr. Murdock is a 44 years old gentleman with a history of hypertension, dyslipidemia, prior stroke, the patient came to the hospital on 02/10/2025 with a chief complaint of acute vision changes I saw her on 02/28/20 for stroke (MRI positive) I have seen and examined the patient, I have discussed with his nurse, the case was discussed with Dr. Amelia Byrd. He is doing fine, he is alert and fully oriented, poor historian. Left monocular blurry vision is slightly better, but change in the right eye blindness Again he confirmed no change or recent change in the right eye blindness, no pain in the eyes UDS, 02/10/2025: Amphetamine CBC, 02/10/2025: Unremarkable BMP, 02/10/2025: Unremarkable TBI/AST/ALT/AP, 02/10/2025: 0.4/51/75/80 HGB A1c, 02/10/2025: 5.7 Troponin one high sensitivity, 02/10/2025: 508, 464, 488 TG/HDL/LDL/HDL, 02/10/2025: 167/203/143/39, Vitamin B12, 02/10/2025: 643 TSH, 02/10/2025: 3.27 Carotid Doppler, 02/10/2025: No hemodynamically significant stenosis by velocity criteria of the bilateral internal carotid arteries. Echocardiogram, 02/10/2025: Left ventricle: The cavity size is normal there is moderate concentric hypertrophy. Systolic function is normal with calculated ejection fraction of 55%. Diastolic function is normal Right ventricle: Systolic function is normal. TR is insufficient to calculate RVSP. Aortic valve: The aortic valve is tricuspid. There is no stenosis or regurgitation. Inferior vena cava: The vessel is normal in size. There is normal respiratory phasic variation consistent with a right atrial pressure of3 mm Hg. Pericardium: There is no pericardial effusion CT head, 02/10/2025: No acute intracranial abnormality MRI, MRA head, 02/28/2020: 1. Acute ischemic infarct at the right centrum semiovale extending to the right putamen measuring 11 mm. 2. No evidence of aneurysm or intracranial stenosis. 3. Mild to moderate small vessel ischemic disease MRI head, 02/11/2025: No acute infarct or hemorrhage. Chronic microvascular ischemic changes. Mild T1 and T2 hyperintense areas of signal abnormality in the posterior right globe, nonspecific. Differentials include hemorrhage, retinal detachment, or mass. Recommend ophthalmologic consultation (this is a new lesion company MRI head obtained on 02/28/2020) (I saw a small lacunar stroke in the right hemisphere at the same place where he had acute stroke in 02/2020) MRI orbit, 02/11/2025: Right retinal detachment. Please correlate with ophthalmological examination. If there is concern for underlying mass, contrast orbital MRI examination is recommended vital signs Vital Sign Date Time Temp Pulse Resp B/P (MAP) Pulse Ox O2 Delivery O2 Flow Rate FiO2 02/12/25 08:30 81 22 117/77 (90) 96 02/12/25 08:00 97.8 97.8 02/12/25 08:00 Nasal Cannula* 3 32 Total Intake and Output 02/11/25 02/11/25 02/12/25 15:00 23:00 07:00 Intake Total 25 ml 480 ml 150 ml Output Total 600 ml 575 ml Balance 25 ml -120 ml -425 ml medications Current Medications Medications Dose Ordered Sig/Hilton Route Start Time Stop Time Status Last Admin Dose Admin Nitroglycerin 0.4 mg Q5MINP PRN SL 02/10/25 05:30 Morphine Sulfate 2 mg Q30M PRN IV 02/10/25 05:30 Atorvastatin Calcium 40 mg HS PO 02/10/25 22:00 02/11/25 22:17 40 MG Nifedipine 60 mg DAILY PO 02/10/25 10:00 UNV Losartan Potassium 100 mg DAILY PO 02/10/25 10:00 UNV Losartan Potassium 100 mg DAILY PO 02/11/25 10:00 02/11/25 11:34 100 MG Nicardipine/ Sodium Chloride 200 ml @ 50 mls/hr Q4H IV 02/10/25 10:15 02/11/25 02:33 50 MLS/HR Nifedipine 90 mg DAILY PO 02/11/25 10:00 02/11/25 10:12 90 MG Carvedilol 6.25 mg Q12HR PO 02/11/25 10:00 02/11/25 22:18 6.25 MG Ondansetron HCl 4 mg Q8HPRN PRN IV 02/11/25 05:15 02/11/25 13:56 4 MG Acetaminophen 650 mg Q6HP PRN PO 02/11/25 06:15 Lorazepam 1 mg ONCE PRN IV 02/11/25 10:45 objective General: the patient is well developed and nourished. No acute distress. MENTAL STATUS: Awake and alert. Oriented to person, place, time and general circumstances. Able to give personal history SPEECH, LANGUAGE, HIGHER CORTICAL FUNCTION: no aphasia or dysathria. CRANIAL NERVES: Intact visual bryant to confrontation. Right eye sees shadows, the left eye sees blurry vision. Pupils are equal, round and reactive. EOMs full and conjugate. No nystagmus. Facial sensation intact in all three divisions bilaterally. Mandibular strength intact. Facial muscles symmetrical and strength intact. SENSATION: Sensation to touch and pinprick is normal. MOTOR: Normal tone in the upper and lower extremity. Normal muscle bulk. No fasciculations. No abnormal movements or posturing. Muscle strength of the major groups in the extremities is 5/5. REFLEXES: Deep tendon reflexes normal and symmetrical. No pathological reflexes. CEREBELLAR/COORDINATION: Finger to nose and heel to james are normal b laboratory and microbiology Laboratory Tests 02/12/25 02:30 Test 02/12/25 02:30 Range/Units Serum Glucose 77 74-106 mg/dL Problem List Acute left eye monocular vision disturbance Rule out acute stroke Rule out acute left optic nerve neuropathy Hypertension emergency Chronic stroke with left-sided weakness, good recovery Amphetamine abuse Poor compliance Sleep-related breathing disorder to rule out sleep apnea Obesity Elevated troponin one/heart attack Abnormal MRI right orbit ? Hemorrhage Assessment/Plan Monitoring Supportive treatment ICU CARE Aspirin 81 mg, daily Lipitor 40 mg daily Quit substance abuse Weight control A trial of APAP in the hospital when he is ready Cardiology on case Transferred to higher level care More recommendation per clinical course Higher level care Re: Right retinal detachment THIS MEDICAL DOCUMENT WAS CREATED USING AN ELECTRONIC MEDICAL RECORD SYSTEM WITH [employer] DICTATION SYSTEM. ALTHOUGH THIS DOCUMENT HAS BEEN CAREFULLY REVIEWED, THERE MAY STILL BE SOME PHONETIC AND TYPOGRAPHICAL ERRORS. THESE AREAS ARE PURELY TYPOGRAPHICAL DUE TO IMPERFECTIONS OF THE SOFTWARE PROGRAMS, AND DO NOT REFLECT ANY COMPROMISE IN THE PATIENT'S MEDICAL CARE. Prognosis poor Plan discussed with: Patient, Other LINDA BARRY MD Feb 12, 2025 09:44
[2025-02-12] MEDS: SPIRONOLACTONE 25 MG TAB PO SCH ×2 (12:48→15:15)
--- NOTE | 2025-02-12 17:23 | DVHPNRES ---
Progress Note Date Seen: Feb 12, 2025 Resident Creating Document: CONRAD WOODSON Medical Necessity Reason Pt with a Central, PICC or Fol: No Subjective Review of Systems Patient seen at bedside. Persistent blurring of vision. Blood pressure still elevated. 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 Patient says that he had around 10 beers the night before after which his vision was blurred. Patient reports that the patient returned sometime later but turned blurry again. 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 Respiratory: No cough, and wheezing. Gastrointestinal: Denies nausea, vomiting, dysphagia, odynophagia, heartburn, abdominal pain, flatulence, bloating, diarrhea, constipation, change in stool, or blood in stool. Genitourinary: No dysuria, hematuria, discharge, frequency, urgency, nocturia, incontinence, and urinary retention. Endocrine: No heat or cold intolerance, polydipsia, polyuria, and polyphagia. Neurological: No dizziness, extremity weakness and numbness, tremors, gait disturbance, seizures, and memory impairment. Psychiatric: Denies depression, anxiety,or insomnia. Musculoskeletal: Denies neck pain, stiffness and swelling, back pain, muscle weakness, joint pain, stiffness, swelling, or limited range of motion. Skin: No rashes, itching, skin lesion, changes in hair, nail, skin texture and breast. Hematologic/Lymphatic: Denies easy bruising, bleeding tendencies, or lymph node enlargement. Objective vital signs Vital Sign Date Time Temp Pulse Resp B/P (MAP) Pulse Ox O2 Delivery O2 Flow Rate FiO2 02/12/25 17:00 98.4 87 19 145/97 (113) 98 98.4 02/12/25 12:00 Nasal Cannula* 3 32 Total Intake and Output 02/11/25 02/11/25 02/12/25 15:00 23:00 07:00 Intake Total 25 ml 480 ml 150 ml Output Total 600 ml 575 ml Balance 25 ml -120 ml -425 ml medications Current Medications Medications Dose Ordered Sig/Hilton Route Start Time Stop Time Status Last Admin Dose Admin Nitroglycerin 0.4 mg Q5MINP PRN SL 02/10/25 05:30 Morphine Sulfate 2 mg Q30M PRN IV 02/10/25 05:30 Atorvastatin Calcium 40 mg HS PO 02/10/25 22:00 02/11/25 22:17 40 MG Nifedipine 60 mg DAILY PO 02/10/25 10:00 UNV Losartan Potassium 100 mg DAILY PO 02/10/25 10:00 UNV Losartan Potassium 100 mg DAILY PO 02/11/25 10:00 02/12/25 09:53 100 MG Nifedipine 90 mg DAILY PO 02/11/25 10:00 02/12/25 09:55 90 MG Carvedilol 6.25 mg Q12HR PO 02/11/25 10:00 02/12/25 09:54 6.25 MG Ondansetron HCl 4 mg Q8HPRN PRN IV 02/11/25 05:15 02/11/25 13:56 4 MG Acetaminophen 650 mg Q6HP PRN PO 02/11/25 06:15 Lorazepam 1 mg ONCE PRN IV 02/11/25 10:45 Hydralazine HCl 10 mg Q6HP PRN IV 02/12/25 12:00 Spironolactone 25 mg DAILY PO 02/12/25 15:15 Examination General Appearance: Alert, Oriented X3, Cooperative, No acute distress HEENT: Atraumatic, PERRLA, EOMI, Mucous membrane moist/pink Respiratory: Clear to auscultation, Normal air movement Cardiovascular: Regular rate, Normal S1, Normal S2, No murmurs, no chest wall tenderness Abdominal: Normal bowel sounds, Soft, No tenderness, No hepatospenomegaly, No masses Extremities: No clubbing, No cyanosis, No edema, Normal pulses, No tenderness/swelling Skin: No rashes, No breakdown, No significant lesion Neuro: Normal gait, Normal speech, Strength at 5/5 X4 ext, Normal tone, Sensation intact, Cranial nerves 3-12 NL, Reflexes 2+ Psych/Mental Status: Mental status NL, Mood NL laboratory and microbiology Laboratory Tests 02/12/25 02:30 Test 02/12/25 02:30 Range/Units Serum Glucose 77 74-106 mg/dL Microbiology Date/Time Source Procedure Growth Status 02/11/25 14:23 Nose MRSA Screen - Final Complete Problem List/Assessment/Plan Problem List/Assessment/Plan Assessment/Plan Possible Intraorbital bleed MRI brain:T1 and T2 hyperintense areas of signal abnormality in the posterior right globe, nonspecific. Differentials include hemorrhage, retinal detachment, or mass Blood pressure control Referral to higher level of care ophthalmology consult Hypertensive emergency NSTEMI type 1 versus type 2 Essential hypertension EKG: No acute ischemic changes, continue monitoring EKG Troponin in 500s Atorvastatin Losartan Nifedipine Echocardiography and BNP ordered, pending results Cardiology Consult Nicardipine drip ANNE transfer History of dyslipidemia History of TIA Head CT shows no acute abnormality. 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 Byrd Plan discussed with: Patient My Orders My Orders Orders - CONRAD WOODSON Procedure Category Date Status Time Spironolactone PHA 02/12/25 In Process (Aldactone) 15:15 Dietary Evaluation Review Comments: Nutrition Recommendation: 1) Ensure high Protein 240ml BID if PO intake <50% 2) Monitor PO intake, lab values, weight trend, and I/O Expected Outcomes/Goals: Intake to meet >75% estimated needs FU 3-5 days Date of Service: Feb 12, 2025 Billing Provider: GRAHAM PRYOR MD Common Visit Codes: [id number] INP/OBS CARE(HIGH) CONRAD WOODSON RESIDENT Feb 12, 2025 17:23
[2025-02-13] VITALS (8 sets, daily range): BP systolic 119–146; BP diastolic 79–104; PULSE 69–88; RESP 17–20; TEMP 97.9–98.4; O2SAT 96–100
[2025-02-13 06:51] LABS: Hematocrit 45.7 % (41.0-53.0); Hemoglobin 15.4 g/dL (13.5-17.5); Mean Corpuscular Hemoglobin 28.4 pg (28.0-32.0); Mean Corpuscular Volume 84.1 fL (80.0-100.0); Nucleated Red Blood Cells % 0.1 %
[2025-02-13 07:04] LABS: Alanine Aminotransferase 31 U/L (7-40); Albumin 4.3 g/dL (3.2-4.8); Alkaline Phosphatase 79 U/L (46-116); Anion Gap 10 (5-15); BUN/Creatinine Ratio 15.5 (10.0-20.0); Bilirubin, Total 0.6 mg/dL (0.2-1.0); Blood Urea Nitrogen 20 mg/dL (9-23); Calcium 9.4 mg/dL (8.7-10.4); Carbon Dioxide 27 mmol/L (20-31); Chloride 104 mmol/L (98-107); Glucose 85 mg/dL (74-106); Potassium 3.9 mmol/L (3.5-5.1); Sodium 141 mmol/L (136-145); Total Protein 7.9 g/dL (5.7-8.2)
--- NOTE | 2025-02-13 13:35 | DVHPN2 ---
Progress Note - Dictate Date Seen: Feb 13, 2025 Medical Necessity Reason Pt with a Central, PICC or Fol: No Subjective Mr. Murdock is a 44 years old gentleman with a history of hypertension, dyslipidemia, prior stroke, the patient came to the hospital on 02/10/2025 with a chief complaint of acute vision changes I saw her on 02/28/20 for stroke (MRI positive) I have seen and examined the patient, I have discussed with his nurse, family in the room. He is doing fine, he is alert and fully oriented, poor historian. Left monocular blurry vision has no further improvement. No change in the right eye blindness UDS, 02/10/2025: Amphetamine CBC, 02/10/2025: Unremarkable BMP, 02/10/2025: Unremarkable TBI/AST/ALT/AP, 02/10/2025: 0.4/51/75/80 HGB A1c, 02/10/2025: 5.7 Troponin one high sensitivity, 02/10/2025: 508, 464, 488 TG/HDL/LDL/HDL, 02/10/2025: 167/203/143/39, Vitamin B12, 02/10/2025: 643 TSH, 02/10/2025: 3.27 Carotid Doppler, 02/10/2025: No hemodynamically significant stenosis by velocity criteria of the bilateral internal carotid arteries. Echocardiogram, 02/10/2025: Left ventricle: The cavity size is normal there is moderate concentric hypertrophy. Systolic function is normal with calculated ejection fraction of 55%. Diastolic function is normal Right ventricle: Systolic function is normal. TR is insufficient to calculate RVSP. Aortic valve: The aortic valve is tricuspid. There is no stenosis or regurgitation. Inferior vena cava: The vessel is normal in size. There is normal respiratory phasic variation consistent with a right atrial pressure of3 mm Hg. Pericardium: There is no pericardial effusion CT head, 02/10/2025: No acute intracranial abnormality MRI, MRA head, 02/28/2020: 1. Acute ischemic infarct at the right centrum semiovale extending to the right putamen measuring 11 mm. 2. No evidence of aneurysm or intracranial stenosis. 3. Mild to moderate small vessel ischemic disease MRI head, 02/11/2025: No acute infarct or hemorrhage. Chronic microvascular ischemic changes. Mild T1 and T2 hyperintense areas of signal abnormality in the posterior right globe, nonspecific. Differentials include hemorrhage, retinal detachment, or mass. Recommend ophthalmologic consultation (this is a new lesion company MRI head obtained on 02/28/2020) (I saw a small lacunar stroke in the right hemisphere at the same place where he had acute stroke in 02/2020) MRI orbit, 02/11/2025: Right retinal detachment. Please correlate with ophthalmological examination. If there is concern for underlying mass, contrast orbital MRI examination is recommended vital signs Vital Sign Date Time Temp Pulse Resp B/P (MAP) Pulse Ox O2 Delivery O2 Flow Rate FiO2 02/13/25 12:46 98.4 79 18 119/79 (92) 100 98.4 02/13/25 08:00 Nasal Cannula* 3 32 Total Intake and Output 02/12/25 02/12/25 02/13/25 15:00 23:00 07:00 Intake Total 700 ml 400 ml Output Total 250 ml Balance 700 ml 150 ml medications Current Medications Medications Dose Ordered Sig/Hilton Route Start Time Stop Time Status Last Admin Dose Admin Nitroglycerin 0.4 mg Q5MINP PRN SL 02/10/25 05:30 Morphine Sulfate 2 mg Q30M PRN IV 02/10/25 05:30 Atorvastatin Calcium 40 mg HS PO 02/10/25 22:00 02/12/25 21:54 40 MG Nifedipine 60 mg DAILY PO 02/10/25 10:00 UNV Losartan Potassium 100 mg DAILY PO 02/10/25 10:00 UNV Losartan Potassium 100 mg DAILY PO 02/11/25 10:00 02/13/25 09:30 100 MG Nifedipine 90 mg DAILY PO 02/11/25 10:00 02/13/25 09:30 90 MG Carvedilol 6.25 mg Q12HR PO 02/11/25 10:00 02/13/25 09:29 6.25 MG Ondansetron HCl 4 mg Q8HPRN PRN IV 02/11/25 05:15 02/12/25 23:57 4 MG Acetaminophen 650 mg Q6HP PRN PO 02/11/25 06:15 Lorazepam 1 mg ONCE PRN IV 02/11/25 10:45 Hydralazine HCl 10 mg Q6HP PRN IV 02/12/25 12:00 Spironolactone 25 mg DAILY PO 02/12/25 15:15 02/13/25 09:30 25 MG objective General: the patient is well developed and nourished. No acute distress. MENTAL STATUS: Awake and alert. Oriented to person, place, time and general circumstances. Able to give personal history SPEECH, LANGUAGE, HIGHER CORTICAL FUNCTION: no aphasia or dysathria. CRANIAL NERVES: Intact visual bryant to confrontation. Right eye sees shadows, the left eye sees blurry vision. Pupils are equal, round and reactive. EOMs full and conjugate. No nystagmus. Facial sensation intact in all three divisions bilaterally. Mandibular strength intact. Facial muscles symmetrical and strength intact. SENSATION: Sensation to touch and pinprick is normal. MOTOR: Normal tone in the upper and lower extremity. Normal muscle bulk. No fasciculations. No abnormal movements or posturing. Muscle strength of the major groups in the extremities is 5/5. REFLEXES: Deep tendon reflexes normal and symmetrical. No pathological reflexes. CEREBELLAR/COORDINATION: Finger to nose and heel to james are normal b laboratory and microbiology Laboratory Tests 02/13/25 06:20 Test 02/13/25 06:20 Range/Units Serum Glucose 85 74-106 mg/dL Problem List Acute left eye monocular vision disturbance Rule out acute left optic nerve neuropathy Hypertension emergency Chronic stroke with left-sided weakness, good recovery Amphetamine abuse Poor compliance Sleep-related breathing disorder to rule out sleep apnea Obesity Elevated troponin one/heart attack Abnormal MRI right orbit ? Hemorrhage Assessment/Plan Monitoring Supportive treatment Telemetry Aspirin 81 mg, daily Lipitor 40 mg daily Quit substance abuse Weight control A trial of APAP in the hospital when he is ready Cardiology on case Transferred to higher level care More recommendation per clinical course Higher level care Re: Right retinal detachment, acute left eye blindness THIS MEDICAL DOCUMENT WAS CREATED USING AN ELECTRONIC MEDICAL RECORD SYSTEM WITH [employer] DICTATION SYSTEM. ALTHOUGH THIS DOCUMENT HAS BEEN CAREFULLY REVIEWED, THERE MAY STILL BE SOME PHONETIC AND TYPOGRAPHICAL ERRORS. THESE AREAS ARE PURELY TYPOGRAPHICAL DUE TO IMPERFECTIONS OF THE SOFTWARE PROGRAMS, AND DO NOT REFLECT ANY COMPROMISE IN THE PATIENT'S MEDICAL CARE. Prognosis poor Dietary Evaluation Review Comments: Nutrition Recommendation: 1) Ensure high Protein 240ml BID if PO intake <50% 2) Monitor PO intake, lab values, weight trend, and I/O Expected Outcomes/Goals: Intake to meet >75% estimated needs FU 3-5 days Plan discussed with: Other LINDA BARRY MD Feb 13, 2025 13:35
--- NOTE | 2025-02-13 15:04 | DVHPNRES ---
Progress Note Date Seen: Feb 13, 2025 Resident Creating Document: CONRAD WOODSON Medical Necessity Reason Pt with a Central, PICC or Fol: No Subjective Review of Systems Patient seen at bedside. Persistent blurring of vision. Blood pressure under control. 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 Patient says that he had around 10 beers the night before after which his vision was blurred. Patient reports that the patient returned sometime later but turned blurry again. 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 Respiratory: No cough, and wheezing. Gastrointestinal: Denies nausea, vomiting, dysphagia, odynophagia, heartburn, abdominal pain, flatulence, bloating, diarrhea, constipation, change in stool, or blood in stool. Genitourinary: No dysuria, hematuria, discharge, frequency, urgency, nocturia, incontinence, and urinary retention. Endocrine: No heat or cold intolerance, polydipsia, polyuria, and polyphagia. Neurological: No dizziness, extremity weakness and numbness, tremors, gait disturbance, seizures, and memory impairment. Psychiatric: Denies depression, anxiety,or insomnia. Musculoskeletal: Denies neck pain, stiffness and swelling, back pain, muscle weakness, joint pain, stiffness, swelling, or limited range of motion. Skin: No rashes, itching, skin lesion, changes in hair, nail, skin texture and breast. Hematologic/Lymphatic: Denies easy bruising, bleeding tendencies, or lymph node enlargement. Objective vital signs Vital Sign Date Time Temp Pulse Resp B/P (MAP) Pulse Ox O2 Delivery O2 Flow Rate FiO2 02/13/25 12:46 98.4 79 18 119/79 92 100 98.4 02/13/25 08:00 Nasal Cannula* 3 32 Total Intake and Output 02/12/25 02/12/25 02/13/25 15:00 23:00 07:00 Intake Total 700 ml 400 ml Output Total 250 ml Balance 700 ml 150 ml medications Current Medications Medications Dose Ordered Sig/Hilton Route Start Time Stop Time Status Last Admin Dose Admin Nitroglycerin 0.4 mg Q5MINP PRN SL 02/10/25 05:30 Morphine Sulfate 2 mg Q30M PRN IV 02/10/25 05:30 Atorvastatin Calcium 40 mg HS PO 02/10/25 22:00 02/12/25 21:54 40 MG Nifedipine 60 mg DAILY PO 02/10/25 10:00 UNV Losartan Potassium 100 mg DAILY PO 02/10/25 10:00 UNV Losartan Potassium 100 mg DAILY PO 02/11/25 10:00 02/13/25 09:30 100 MG Nifedipine 90 mg DAILY PO 02/11/25 10:00 02/13/25 09:30 90 MG Carvedilol 6.25 mg Q12HR PO 02/11/25 10:00 02/13/25 09:29 6.25 MG Ondansetron HCl 4 mg Q8HPRN PRN IV 02/11/25 05:15 02/12/25 23:57 4 MG Acetaminophen 650 mg Q6HP PRN PO 02/11/25 06:15 Lorazepam 1 mg ONCE PRN IV 02/11/25 10:45 Hydralazine HCl 10 mg Q6HP PRN IV 02/12/25 12:00 Spironolactone 25 mg DAILY PO 02/12/25 15:15 02/13/25 09:30 25 MG Examination General Appearance: Alert, Oriented X3, Cooperative, No acute distress HEENT: Atraumatic, PERRLA, EOMI, Mucous membrane moist/pink Respiratory: Clear to auscultation, Normal air movement Cardiovascular: Regular rate, Normal S1, Normal S2, No murmurs, no chest wall tenderness Abdominal: Normal bowel sounds, Soft, No tenderness, No hepatospenomegaly, No masses Extremities: No clubbing, No cyanosis, No edema, Normal pulses, No tenderness/swelling Skin: No rashes, No breakdown, No significant lesion Neuro: Normal gait, Normal speech, Strength at 5/5 X4 ext, Normal tone, Sensation intact, Cranial nerves 3-12 NL, Reflexes 2+ Psych/Mental Status: Mental status NL, Mood NL laboratory and microbiology Laboratory Tests 02/13/25 06:20 Test 02/13/25 06:20 Range/Units Serum Glucose 85 74-106 mg/dL Microbiology Date/Time Source Procedure Growth Status 02/11/25 14:23 Nose MRSA Screen - Final Complete Problem List/Assessment/Plan Problem List/Assessment/Plan Assessment/Plan Possible Intraorbital bleed MRI brain:T1 and T2 hyperintense areas of signal abnormality in the posterior right globe, nonspecific. Differentials include hemorrhage, retinal detachment, or mass Blood pressure control Referral to higher level of care ophthalmology consult Hypertensive emergency NSTEMI type 1 versus type 2 Essential hypertension EKG: No acute ischemic changes, continue monitoring EKG Troponin in 500s Atorvastatin Losartan Nifedipine Echocardiography and BNP ordered, pending results Cardiology Consult Nicardipine drip ANNE transfer History of dyslipidemia History of TIA Head CT shows no acute abnormality. 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 Sanders Plan discussed with: Patient My Orders My Orders Orders - CONRAD WOODSON Procedure Category Date Status Time Spironolactone PHA 02/12/25 In Process (Aldactone) 15:15 Dietary Evaluation Review Comments: Nutrition Recommendation: 1) Ensure high Protein 240ml BID if PO intake <50% 2) Monitor PO intake, lab values, weight trend, and I/O Expected Outcomes/Goals: Intake to meet >75% estimated needs FU 3-5 days Date of Service: Feb 13, 2025 Billing Provider: MATTHEW SANDERS DO Common Visit Codes: [id number] INP/OBS CARE(HIGH) CONRAD WOODSON RESIDENT Feb 13, 2025 15:04 MATTHEW SANDERS DO Feb 15, 2025 11:25
[2025-02-13] MEDS: ACETAMINOPHEN 325 MG TAB PO PRN (17:13)
[2025-02-14] VITALS (9 sets, daily range): BP systolic 139–165; BP diastolic 85–119; PULSE 56–106; RESP 18–20; TEMP 97.7–98.3; O2SAT 97–99
[2025-02-14 08:00] LABS: Hematocrit 47.1 % (41.0-53.0); Hemoglobin 16.2 g/dL (13.5-17.5); Mean Corpuscular Hemoglobin 28.8 pg (28.0-32.0); Mean Corpuscular Volume 84.0 fL (80.0-100.0); Nucleated Red Blood Cells % 0.1 %
[2025-02-14 08:52] LABS: Alanine Aminotransferase 28 U/L (7-40); Alkaline Phosphatase 79 U/L (46-116); Anion Gap 12 (5-15); BUN/Creatinine Ratio 16.7 (10.0-20.0); Blood Urea Nitrogen 19 mg/dL (9-23); Calcium 9.2 mg/dL (8.7-10.4); Carbon Dioxide 25 mmol/L (20-31); Chloride 104 mmol/L (98-107); Glucose 75 mg/dL (74-106); Potassium 3.9 mmol/L (3.5-5.1); Sodium 141 mmol/L (136-145); Total Protein 7.6 g/dL (5.7-8.2)
[2025-02-14 08:53] LABS: Albumin 4.1 g/dL (3.2-4.8)
[2025-02-14 08:54] LABS: Bilirubin, Total 0.5 mg/dL (0.2-1.0)
[2025-02-14] MEDS: hydrALAZINE HCL 20 MG/ML VL IV PRN (12:16)
[2025-02-14] MEDS: ARTIFICIAL TEARS 15ml EACHEYE PRN (15:42)
--- NOTE | 2025-02-14 16:44 | DVHPNRES ---
Progress Note Date Seen: Feb 14, 2025 Resident Creating Document: CONRAD WOODSON Medical Necessity Reason Pt with a Central, PICC or Fol: No Subjective Review of Systems Patient seen at bedside. Persistent blurring of vision. Complains of dry eyes. Methylcellulose eyedrops provided. Planning for higher level of care. 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 Patient says that he had around 10 beers the night before after which his vision was blurred. Patient reports that the patient returned sometime later but turned blurry again. 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 Respiratory: No cough, and wheezing. Gastrointestinal: Denies nausea, vomiting, dysphagia, odynophagia, heartburn, abdominal pain, flatulence, bloating, diarrhea, constipation, change in stool, or blood in stool. Genitourinary: No dysuria, hematuria, discharge, frequency, urgency, nocturia, incontinence, and urinary retention. Endocrine: No heat or cold intolerance, polydipsia, polyuria, and polyphagia. Neurological: No dizziness, extremity weakness and numbness, tremors, gait disturbance, seizures, and memory impairment. Psychiatric: Denies depression, anxiety,or insomnia. Musculoskeletal: Denies neck pain, stiffness and swelling, back pain, muscle weakness, joint pain, stiffness, swelling, or limited range of motion. Skin: No rashes, itching, skin lesion, changes in hair, nail, skin texture and breast. Hematologic/Lymphatic: Denies easy bruising, bleeding tendencies, or lymph node enlargement. Objective vital signs Vital Sign Date Time Temp Pulse Resp B/P (MAP) Pulse Ox O2 Delivery O2 Flow Rate FiO2 02/14/25 13:30 89 154/103 (120) 99 02/14/25 13:00 98.3 19 98.3 02/14/25 08:00 Room Air* 0 21 Total Intake and Output 02/13/25 02/13/25 02/14/25 15:00 23:00 07:00 Intake Total 1000 ml 400 ml Output Total 300 ml 600 ml Balance -300 ml 1000 ml -200 ml medications Current Medications Medications Dose Ordered Sig/Hilton Route Start Time Stop Time Status Last Admin Dose Admin Nitroglycerin 0.4 mg Q5MINP PRN SL 02/10/25 05:30 Morphine Sulfate 2 mg Q30M PRN IV 02/10/25 05:30 Atorvastatin Calcium 40 mg HS PO 02/10/25 22:00 02/13/25 21:46 40 MG Nifedipine 60 mg DAILY PO 02/10/25 10:00 UNV Losartan Potassium 100 mg DAILY PO 02/10/25 10:00 UNV Losartan Potassium 100 mg DAILY PO 02/11/25 10:00 02/14/25 09:27 100 MG Nifedipine 90 mg DAILY PO 02/11/25 10:00 02/14/25 09:27 90 MG Carvedilol 6.25 mg Q12HR PO 02/11/25 10:00 02/14/25 09:27 6.25 MG Ondansetron HCl 4 mg Q8HPRN PRN IV 02/11/25 05:15 02/12/25 23:57 4 MG Acetaminophen 650 mg Q6HP PRN PO 02/11/25 06:15 02/13/25 17:13 650 MG Lorazepam 1 mg ONCE PRN IV 02/11/25 10:45 Hydralazine HCl 10 mg Q6HP PRN IV 02/12/25 12:00 02/14/25 12:16 10 MG Spironolactone 25 mg DAILY PO 02/12/25 15:15 02/14/25 09:26 25 MG Artificial Tears 1 drop Q6HP PRN EACHEYE 02/14/25 14:30 02/14/25 15:42 1 DROP Examination General Appearance: Alert, Oriented X3, Cooperative, No acute distress HEENT: Atraumatic, PERRLA, EOMI, Mucous membrane moist/pink Respiratory: Clear to auscultation, Normal air movement Cardiovascular: Regular rate, Normal S1, Normal S2, No murmurs, no chest wall tenderness Abdominal: Normal bowel sounds, Soft, No tenderness, No hepatospenomegaly, No masses Extremities: No clubbing, No cyanosis, No edema, Normal pulses, No tenderness/swelling Skin: No rashes, No breakdown, No significant lesion Neuro: Normal gait, Normal speech, Strength at 5/5 X4 ext, Normal tone, Sensation intact, Cranial nerves 3-12 NL, Reflexes 2+ Psych/Mental Status: Mental status NL, Mood NL laboratory and microbiology Laboratory Tests 02/14/25 06:43 Test 02/14/25 06:43 Range/Units Serum Glucose 75 74-106 mg/dL Microbiology Date/Time Source Procedure Growth Status 02/11/25 14:23 Nose MRSA Screen - Final Complete Problem List/Assessment/Plan Problem List/Assessment/Plan Assessment/Plan Possible Intraorbital bleed MRI brain:T1 and T2 hyperintense areas of signal abnormality in the posterior right globe, nonspecific. Differentials include hemorrhage, retinal detachment, or mass Blood pressure control Referral to higher level of care ophthalmology consult Hypertensive emergency NSTEMI type 1 versus type 2 Essential hypertension EKG: No acute ischemic changes, continue monitoring EKG Troponin in 500s Atorvastatin Losartan Nifedipine Echocardiography and BNP ordered, pending results Cardiology Consult Nicardipine drip ANNE transfer History of dyslipidemia History of TIA Head CT shows no acute abnormality. 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 Sanders Plan discussed with: Patient My Orders My Orders Orders - CONRAD WOODSON RESIDENT Procedure Category Date Status Time Imaging Transfer ORDERS 02/14/25 Transmitted Request 07:32 Yadira; Direct LAB 02/14/25 In Process 08:17 Artificial Tear 15ml PHA 02/14/25 In Process Opthalmic (Tears Na 14:30 Complete Blood Count LAB 02/15/25 Verified 04:00 Comprehensive LAB 02/15/25 Verified Metabolic Panel 04:00 Dietary Evaluation Review Comments: Nutrition Recommendation: 1) Ensure high Protein 240ml BID if PO intake <50% 2) Monitor PO intake, lab values, weight trend, and I/O Expected Outcomes/Goals: Intake to meet >75% estimated needs FU 3-5 days Date of Service: Feb 14, 2025 Billing Provider: MATTHEW SANDERS DO Common Visit Codes: [id number] INP/OBS CARE(HIGH) CONRAD WOODSON RESIDENT Feb 14, 2025 16:44 MATTHEW SANDERS DO Feb 15, 2025 11:25
--- NOTE | 2025-02-14 22:41 | DVHPN2 ---
Progress Note - Dictate Date Seen: Feb 14, 2025 Medical Necessity Reason Pt with a Central, PICC or Fol: No Subjective Mr. Murdock is a 44 years old gentleman with a history of hypertension, dyslipidemia, prior stroke, the patient came to the hospital on 02/10/2025 with a chief complaint of acute vision changes I saw her on 02/28/20 for stroke (MRI positive) I have seen and examined the patient, I have discussed with his nurse. He is doing fine, he is alert and fully oriented, poor historian. No changes in the left monocular blurry vision. No change in the right eye blindness Social service input appreciated UDS, 02/10/2025: Amphetamine CBC, 02/10/2025: Unremarkable BMP, 02/10/2025: Unremarkable TBI/AST/ALT/AP, 02/10/2025: 0.4/51/75/80 HGB A1c, 02/10/2025: 5.7 Troponin one high sensitivity, 02/10/2025: 508, 464, 488 TG/HDL/LDL/HDL, 02/10/2025: 167/203/143/39, Vitamin B12, 02/10/2025: 643 TSH, 02/10/2025: 3.27 Carotid Doppler, 02/10/2025: No hemodynamically significant stenosis by velocity criteria of the bilateral internal carotid arteries. Echocardiogram, 02/10/2025: Left ventricle: The cavity size is normal there is moderate concentric hypertrophy. Systolic function is normal with calculated ejection fraction of 55%. Diastolic function is normal Right ventricle: Systolic function is normal. TR is insufficient to calculate RVSP. Aortic valve: The aortic valve is tricuspid. There is no stenosis or regurgitation. Inferior vena cava: The vessel is normal in size. There is normal respiratory phasic variation consistent with a right atrial pressure of3 mm Hg. Pericardium: There is no pericardial effusion CT head, 02/10/2025: No acute intracranial abnormality MRI, MRA head, 02/28/2020: 1. Acute ischemic infarct at the right centrum semiovale extending to the right putamen measuring 11 mm. 2. No evidence of aneurysm or intracranial stenosis. 3. Mild to moderate small vessel ischemic disease MRI head, 02/11/2025: No acute infarct or hemorrhage. Chronic microvascular ischemic changes. Mild T1 and T2 hyperintense areas of signal abnormality in the posterior right globe, nonspecific. Differentials include hemorrhage, retinal detachment, or mass. Recommend ophthalmologic consultation (this is a new lesion company MRI head obtained on 02/28/2020) (I saw a small lacunar stroke in the right hemisphere at the same place where he had acute stroke in 02/2020) MRI orbit, 02/11/2025: Right retinal detachment. Please correlate with ophthalmological examination. If there is concern for underlying mass, contrast orbital MRI examination is recommended vital signs Vital Sign Date Time Temp Pulse Resp B/P (MAP) Pulse Ox O2 Delivery O2 Flow Rate FiO2 02/14/25 21:58 89 139/85 02/14/25 17:00 97.8 19 97 97.8 02/14/25 08:00 Room Air* 0 21 Total Intake and Output 02/13/25 02/13/25 02/14/25 15:00 23:00 07:00 Intake Total 1000 ml 400 ml Output Total 300 ml 600 ml Balance -300 ml 1000 ml -200 ml medications Current Medications Medications Dose Ordered Sig/Hilton Route Start Time Stop Time Status Last Admin Dose Admin Nitroglycerin 0.4 mg Q5MINP PRN SL 02/10/25 05:30 Morphine Sulfate 2 mg Q30M PRN IV 02/10/25 05:30 Atorvastatin Calcium 40 mg HS PO 02/10/25 22:00 02/14/25 21:58 40 MG Nifedipine 60 mg DAILY PO 02/10/25 10:00 UNV Losartan Potassium 100 mg DAILY PO 02/10/25 10:00 UNV Losartan Potassium 100 mg DAILY PO 02/11/25 10:00 02/14/25 09:27 100 MG Nifedipine 90 mg DAILY PO 02/11/25 10:00 02/14/25 09:27 90 MG Carvedilol 6.25 mg Q12HR PO 02/11/25 10:00 02/14/25 21:58 6.25 MG Ondansetron HCl 4 mg Q8HPRN PRN IV 02/11/25 05:15 02/12/25 23:57 4 MG Acetaminophen 650 mg Q6HP PRN PO 02/11/25 06:15 02/13/25 17:13 650 MG Lorazepam 1 mg ONCE PRN IV 02/11/25 10:45 Hydralazine HCl 10 mg Q6HP PRN IV 02/12/25 12:00 02/14/25 12:16 10 MG Spironolactone 25 mg DAILY PO 02/12/25 15:15 02/14/25 09:26 25 MG Artificial Tears 1 drop Q6HP PRN EACHEYE 02/14/25 14:30 02/14/25 15:42 1 DROP objective General: the patient is well developed and nourished. No acute distress. MENTAL STATUS: Awake and alert. Oriented to person, place, time and general circumstances. Able to give personal history SPEECH, LANGUAGE, HIGHER CORTICAL FUNCTION: no aphasia or dysathria. CRANIAL NERVES: Intact visual bryant to confrontation. Right eye sees shadows, the left eye sees blurry vision. Pupils are equal, round and reactive. EOMs full and conjugate. No nystagmus. Facial sensation intact in all three divisions bilaterally. Mandibular strength intact. Facial muscles symmetrical and strength intact. SENSATION: Sensation to touch and pinprick is normal. MOTOR: Normal tone in the upper and lower extremity. Normal muscle bulk. No fasciculations. No abnormal movements or posturing. Muscle strength of the major groups in the extremities is 5/5. REFLEXES: Deep tendon reflexes normal and symmetrical. No pathological reflexes. CEREBELLAR/COORDINATION: Finger to nose and heel to james are normal b laboratory and microbiology Laboratory Tests 02/14/25 06:43 Test 02/14/25 06:43 Range/Units Serum Glucose 75 74-106 mg/dL Problem List Acute left eye monocular vision disturbance Rule out acute left optic nerve neuropathy Hypertension emergency Chronic stroke with left-sided weakness, good recovery Amphetamine abuse Poor compliance Sleep-related breathing disorder to rule out sleep apnea Obesity Elevated troponin one/heart attack Abnormal MRI right orbit ? Hemorrhage Assessment/Plan Monitoring Supportive treatment Telemetry Aspirin 81 mg, daily Lipitor 40 mg daily Quit substance abuse Weight control A trial of APAP in the hospital when he is ready Cardiology on case Transferred to higher level care More recommendation per clinical course Higher level care Re: Right retinal detachment, acute left eye blindness THIS MEDICAL DOCUMENT WAS CREATED USING AN ELECTRONIC MEDICAL RECORD SYSTEM WITH [employer] SYSTEM. ALTHOUGH THIS DOCUMENT HAS BEEN CAREFULLY REVIEWED, THERE MAY STILL BE SOME PHONETIC AND TYPOGRAPHICAL ERRORS. THESE AREAS ARE PURELY TYPOGRAPHICAL DUE TO IMPERFECTIONS OF THE SOFTWARE PROGRAMS, AND DO NOT REFLECT ANY COMPROMISE IN THE PATIENT'S MEDICAL CARE. Prognosis poor Dietary Evaluation Review Comments: Nutrition Recommendation: 1) Ensure high Protein 240ml BID if PO intake <50% 2) Monitor PO intake, lab values, weight trend, and I/O Expected Outcomes/Goals: Intake to meet >75% estimated needs FU 3-5 days Plan discussed with: Patient, Other LINDA BARRY MD Feb 14, 2025 22:41
[2025-02-15 01:00] VITALS: BP 159/105; PULSE 102; RESP 19; TEMP 97.7; O2SAT 97
[2025-02-15] MEDS: METOPROLOL TARTRATE 1MG/1ML-5ML VIAL IV ONE (04:12)
[2025-02-15 05:00] VITALS: BP 149/106; PULSE 106; RESP 18; TEMP 98; O2SAT 97
[2025-02-15 07:23] LABS: Hematocrit 46.5 % (41.0-53.0); Hemoglobin 15.7 g/dL (13.5-17.5); Mean Corpuscular Hemoglobin 28.2 pg (28.0-32.0); Mean Corpuscular Volume 83.2 fL (80.0-100.0)
[2025-02-15 07:29] LABS: Alanine Aminotransferase 25 U/L (7-40); Albumin 4.3 g/dL (3.2-4.8); Alkaline Phosphatase 84 U/L (46-116); Anion Gap 12 (5-15); BUN/Creatinine Ratio 14.1 (10.0-20.0); Bilirubin, Total 0.6 mg/dL (0.2-1.0); Blood Urea Nitrogen 18 mg/dL (9-23); Calcium 9.6 mg/dL (8.7-10.4); Carbon Dioxide 21 mmol/L (20-31); Chloride 104 mmol/L (98-107); Glucose 87 mg/dL (74-106); Potassium 4.2 mmol/L (3.5-5.1); Sodium 137 mmol/L (136-145); Total Protein 7.9 g/dL (5.7-8.2)
[2025-02-15 08:00] VITALS: PULSE 106; RESP 20; O2SAT 97
[2025-02-15 08:05] LABS: Total Cells Counted 100.0 (100)
[2025-02-15 09:00] VITALS: BP 146/97; PULSE 105; RESP 20; TEMP 100.3; O2SAT 97
[2025-02-15 13:00] VITALS: BP 126/79; PULSE 91; RESP 20; TEMP 97; O2SAT 96
--- NOTE | 2025-02-15 14:23 | DVHPNRES ---
Progress Note Date Seen: Feb 15, 2025 Resident Creating Document: SOHAN ALVAREZ RESDIENT Medical Necessity Reason Pt with a Central, PICC or Fol: No Subjective Review of Systems Patient seen and examined at the bedside. Patient is still complaining of visual impairment. Objective vital signs Vital Sign Date Time Temp Pulse Resp B/P (MAP) Pulse Ox O2 Delivery O2 Flow Rate FiO2 02/15/25 13:00 97.0 91 20 126/79 (95) 96 97.0 02/15/25 08:00 Room Air* 0 21 Total Intake and Output 02/14/25 02/14/25 02/15/25 15:00 23:00 07:00 Intake Total 1050 ml 200 ml Output Total 400 ml 650 ml Balance -400 ml 400 ml 200 ml medications Current Medications Medications Dose Ordered Sig/Hilton Route Start Time Stop Time Status Last Admin Dose Admin Nitroglycerin 0.4 mg Q5MINP PRN SL 02/10/25 05:30 Morphine Sulfate 2 mg Q30M PRN IV 02/10/25 05:30 Atorvastatin Calcium 40 mg HS PO 02/10/25 22:00 02/14/25 21:58 40 MG Nifedipine 60 mg DAILY PO 02/10/25 10:00 UNV Losartan Potassium 100 mg DAILY PO 02/10/25 10:00 UNV Losartan Potassium 100 mg DAILY PO 02/11/25 10:00 02/15/25 10:47 100 MG Nifedipine 90 mg DAILY PO 02/11/25 10:00 02/15/25 10:45 90 MG Carvedilol 6.25 mg Q12HR PO 02/11/25 10:00 02/15/25 10:44 6.25 MG Ondansetron HCl 4 mg Q8HPRN PRN IV 02/11/25 05:15 02/12/25 23:57 4 MG Acetaminophen 650 mg Q6HP PRN PO 02/11/25 06:15 02/15/25 10:45 650 MG Lorazepam 1 mg ONCE PRN IV 02/11/25 10:45 Hydralazine HCl 10 mg Q6HP PRN IV 02/12/25 12:00 02/15/25 00:17 10 MG Spironolactone 25 mg DAILY PO 02/12/25 15:15 02/15/25 10:45 25 MG Artificial Tears 1 drop Q6HP PRN EACHEYE 02/14/25 14:30 02/14/25 15:42 1 DROP Examination General: patient denies fever, fatigue, weaknes, sweating, any recent changes in appetite and weight HEENT: complains of vision loss Cardiovascular: Denies chest pain, palpitations, dyspnea on exertion, orthopnea, or claudication. Respiratory: No cough, and wheezing. Gastrointestinal: Denies nausea, vomiting, dysphagia, odynophagia, heartburn, abdominal pain, flatulence, bloating, diarrhea, constipation, change in stool, or blood in stool. Genitourinary: No dysuria, hematuria, discharge, frequency, urgency, nocturia, incontinence, and urinary retention. Endocrine: No heat or cold intolerance, polydipsia, polyuria, and polyphagia. Neurological: No dizziness, extremity weakness and numbness, tremors, gait disturbance, seizures, and memory impairment. Psychiatric: Denies depression, anxiety,or insomnia. Musculoskeletal: Denies neck pain, stiffness and swelling, back pain, muscle weakness, joint pain, stiffness, swelling, or limited range of motion. Skin: No rashes, itching, skin lesion, changes in hair, nail, skin texture and breast. Hematologic/Lymphatic: Denies easy bruising, bleeding tendencies, or lymph node enlargement. laboratory and microbiology Laboratory Tests 02/15/25 05:05 Test 02/15/25 05:05 Range/Units Serum Glucose 87 74-106 mg/dL Microbiology Date/Time Source Procedure Growth Status 02/11/25 14:23 Nose MRSA Screen - Final Complete Labs and/or images reviewed: Labs reviewed by me, Image(s) reviewed by me Problem List/Assessment/Plan Problem List/Assessment/Plan Possible Intraorbital bleed MRI brain:T1 and T2 hyperintense areas of signal abnormality in the posterior right globe, nonspecific. Differentials include hemorrhage, retinal detachment, or mass Blood pressure control Referral to higher level of care ophthalmology consult Hypertensive emergency NSTEMI type 1 versus type 2 Essential hypertension EKG: No acute ischemic changes, continue monitoring EKG Troponin in 500s Atorvastatin Losartan Nifedipine Echocardiography and BNP ordered, pending results Cardiology Consult Nicardipine drip ANNE transfer History of dyslipidemia History of TIA Head CT shows no acute abnormality. 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 Patient's status, and care of plan discussed in detail with patient, patient's brother and the patient's at the bedside. Goals of care Full code status Case discussed with Dr. Sanders Plan discussed with: Patient, Other (RN) Dietary Evaluation Review Comments: Nutrition Recommendation: 1) Ensure high Protein 240ml BID if PO intake <50% 2) Monitor PO intake, lab values, weight trend, and I/O Expected Outcomes/Goals: Intake to meet >75% estimated needs FU 3-5 days Visit Coding STANDARD RES Billing Provider: MATTHEW SANDERS DO Date of Service if different f: Feb 15, 2025 Common Visit Codes: [id number] INP/OBS CARE(HIGH) SOHAN ALVAREZ RESDIENT Feb 15, 2025 14:23 MATTHEW SANDERS DO Feb 16, 2025 20:56
[2025-02-15] MEDS: HYDROcodone-ACET 7.5/325MG TAB PO PRN (16:17)
[2025-02-15 17:00] VITALS: BP 146/85; PULSE 109; RESP 20; TEMP 101.1; O2SAT 97
== END 2025-02-15 17:05 | disposition left against medical advice (07) | DRG 281 ==
LOC: ER 02:51 → UNDOADMIN 05:29 → OVERFLOW 05:29 → ICU CENTRL 02-11 04:07 → TELE-CENTR 02-12 13:08
PROVIDERS: ADMIT Student in an Organized Health Care Education/Training Program; ATTEND Student in an Organized Health Care Education/Training Program
DX: I16.1 Hypertensive emergency (principal); G45.9 Transient cerebral ischemic attack, unspecified; I21.A1 Myocardial infarction type 2; Z79.02 Long term (current) use of antithrombotics/antiplatelets; I69.354 Hemiplegia and hemiparesis following cerebral infarction affecting left non-dominant side; E66.9 Obesity, unspecified; F15.129 Other stimulant abuse with intoxication, unspecified; I10 Essential (primary) hypertension; H33.21 Serous retinal detachment, right eye; E78.00 Pure hypercholesterolemia, unspecified; Z68.39 Body mass index [BMI] 39.0-39.9, adult; E78.5 Hyperlipidemia, unspecified; H54.8 Legal blindness, as defined in USA; Z91.148 Patient's other noncompliance with medication regimen for other reason; F17.210 Nicotine dependence, cigarettes, uncomplicated; Z79.82 Long term (current) use of aspirin; Z79.899 Other long term (current) drug therapy; Z82.49 Family history of ischemic heart disease and other diseases of the circulatory system; Z83.3 Family history of diabetes mellitus; Z71.3 Dietary counseling and surveillance; Z71.82 Exercise counseling; Z53.29 Procedure and treatment not carried out because of patient's decision for other reasons
CPT/HCPCS: 36415; 70450; 70540; 70551; 71045; 80048; 80053; 80061; 80074; 80076; 80307; 81001; 82088; 82306; 82607; 83036; 83735; 83880; 84244; 84443; 84484; 85007; 85025; 85027; 85610; 85652; 85730; 86038; 87081; 93005; 93306; 93886; 96374; 96376; G0378; J2405